=== PATIENT | female | born 1995 | race Caucasian/White ===

== ENCOUNTER 2017-03-22 23:55 | Outpatient (CLI) | payer OTHER ==
[~2017-03-22] VITALS: Ht 149.9 cm; Wt 65.9 kg
[~2017-03-22 23:55] MED LIST: ALBUTEROL; INHALERS
[2017-03-23 00:28] LABS: ADD UMIC NO; UR ASCORBIC ACID NEGATIVE (NEGATIVE); UR BILIRUBIN (Dip) NEGATIVE (NEGATIVE); UR BLOOD (Dip) NEGATIVE (NEGATIVE); UR CLARITY CLEAR (CLEAR); UR COLOR STRAW (YELLOW); UR GLUCOSE (Dip) NEGATIVE (NEGATIVE); UR KETONES (Dip) NEGATIVE (NEGATIVE); UR LEUKOCYTE ESTERASE (Dip) NEGATIVE Leu/ul (NEGATIVE); UR NITRITE (Dip) NEGATIVE (NEGATIVE); UR SPECIFIC GRAVITY (Dip) 1.004 (1.003-1.030); UR TOTAL PROTEIN (Dip) NEGATIVE (NEGATIVE); UR UROBILINOGEN (Dip) NEGATIVE (NEGATIVE)
--- NOTE | 2017-03-23 01:20 | PN ---
Triage Information Date/Time March 23, 2017 Weeks of Gestation 27 weeks : 1 Para: 0 Diabetes: none Hypertention: none Additional information 21 y.o. G1 with an IUP at 27 weeks came in with c/o decreased movement. No bleeding or leaking. PMHxL asthma. Scoliosis.Sciatica. PSHx: tonsillectomy. NKDA. Objective T=98.8. Heart Rate: 130's Contractions: None (rare) Results/Medications Results 24 hrs Laboratory Tests Test 03/23/17 00:05 Urine Color STRAW Urine Clarity CLEAR Urine pH 7.0 Urine Specific [place] 1.004 Urine Ketones NEGATIVE Urine Nitrite NEGATIVE Urine Bilirubin NEGATIVE Urine Urobilinogen NEGATIVE Urine Leukocyte Esterase NEGATIVE Urine Hemoglobin NEGATIVE Urine Glucose NEGATIVE Urine Total Protein NEGATIVE Imaging Results Biophysical profile is pending. Assessment/Plan A: IUP at 27 weeks with c/o decreased movement. P: BPP , u/a WITH PRN CULTURE. BPP is pending. If all good, may go home at any time. MARSHALL TREVINO MD Mar 23, 2017 01:20
--- NOTE | 2017-03-23 02:42 | RADRPT ---
PROCEDURE: US OB biophysical profile. CLINICAL INDICATION: decreased movements TECHNIQUE: Multiple sonographic images of the pelvis were obtained. The images were reviewed on a PACS workstation. COMPARISON: No pertinent prior examinations were submitted for comparison. FINDINGS: There is a single viable intrauterine gestation. Cardiac activity is present with 157 beats per min false pass. There is a breech presentation. The placenta is posterior, grade 1 in appearance. There is an increased amount of amniotic fluid with an HINA = 23.3 cm. Biophysical profile: movement 2/2 tone 2/2. breathing 2/2 HINA 2/2 Total 04/02 IMPRESSION: Normal biophysical profile. Polyhydramnios RPTAT: HIKT . .Trey Matthew MD, MD Date Time Electronically viewed and signed by .Trey Matthew MD, on 03/23/2017 02:41 .T/
[2017-03-23 02:49] VITALS: BP 108/61; RESP 18
[2017-03-23] MEDS ORDERED: PRENAT PO (02:57)
--- NOTE | 2017-03-23 04:26 | TRIAGE ---
OB Triage Datetime Report Generated by CPN: 03/23/2017 04:25 Datetime: 03/23/2017 00:58 Stage of : OB Triage Heart Rate Monitor Mode: External US Datetime: 03/23/2017 00:15 Time of Arrival: 03/22/2017 23:50 EGA: 26.6 Arrived By: Wheelchair Arrived From: Home Chief Complaint: w/ c/o DFM all day Movement: Decreased Contractions: Denies/Absent Rupture of Membranes: Denies Vaginal Bleeding: None Vaginal Discharge: Denies Recent Sexual Intercouse: Denies Abdominal Trauma: Not Applicable Patient Complaints: None Time Provider Notified: 03/23/2017 00:19 Provider Notified: Dr Suarez Initial Plan: EFM, BPP, UA Vaginal Exam Membrane Status: Intact
== END 2017-03-23 03:09 | disposition home or self-care (01) ==
LOC: OBT 23:55 → L-D 23:58 → OBT 03-23 03:09
PROVIDERS: ATTEND Obstetrics & Gynecology
DX: O36.8120 Decreased fetal movements, second trimester, not applicable or unspecified (principal); Z3A.27 27 weeks gestation of pregnancy
CPT/HCPCS: 76818; 81003

== ENCOUNTER 2017-04-05 12:19 | Outpatient (CLI) | payer OTHER ==
[~2017-04-05] VITALS: Ht 149.9 cm; Wt 66.8 kg
[~2017-04-05 12:19] MED LIST changes: -INHALERS; +PRENAT PO
[2017-04-05 13:14] VITALS: Ht 149.9 cm; Wt 66.8 kg
[2017-04-05 13:19] VITALS: BP 120/66; PULSE 91; RESP 20
[2017-04-05 13:38] LABS: BASOPHILS % 0.2 % (0.0-2.0); EOSINOPHILS # 0.1 10^3/ul (0.0-0.5); EOSINOPHILS % 0.6 % (0.0-7.0); HEMATOCRIT 28.8 % (37.0-47.0); MEAN CORPUSCULAR HEMOGLOBIN 29.8 pg (29.0-33.0); MEAN CORPUSCULAR HGB CONC 34.7 g/dl (32.0-37.0); MEAN CORPUSCULAR VOLUME 85.7 fl (82.0-101.0); MEAN PLATELET VOLUME 10.9 fl (7.4-10.4); MONOCYTE # 0.9 10^3/ul (0.3-0.9); NEUTROPHILS % 76.6 % (39.0-77.0); PLATELET COUNT 184 10^3/UL (140-415); RED BLOOD COUNT 3.36 10^6/ul (4.20-5.40); RED CELL DISTRIBUTION WIDTH 13.1 % (11.5-14.5); WHITE BLOOD COUNT 14.4 10^3/ul (4.8-10.8)
[2017-04-05 13:53] LABS: ADD UMIC NO; UR ASCORBIC ACID NEGATIVE (NEGATIVE); UR BACTERIA FEW /HPF (NONE SEEN); UR BILIRUBIN (Dip) NEGATIVE (NEGATIVE); UR BLOOD (Dip) NEGATIVE (NEGATIVE); UR CLARITY SLIGHTLY CLOUDY (CLEAR); UR COLOR YELLOW (YELLOW); UR GLUCOSE (Dip) NEGATIVE (NEGATIVE); UR KETONES (Dip) NEGATIVE (NEGATIVE); UR LEUKOCYTE ESTERASE (Dip) NEGATIVE Leu/ul (NEGATIVE); UR NITRITE (Dip) NEGATIVE (NEGATIVE); UR RBC 0 /HPF (0-5); UR SPECIFIC GRAVITY (Dip) 1.009 (1.003-1.030); UR SQUAMOUS EPITHELIAL CELL FEW /HPF (FEW); UR TOTAL PROTEIN (Dip) NEGATIVE (NEGATIVE); UR UROBILINOGEN (Dip) NEGATIVE (NEGATIVE)
--- NOTE | 2017-04-05 13:54 | RADRPT ---
PROCEDURE: OB ultrasound for biophysical profile CLINICAL INDICATION: Polyhydramnios, follow-up TECHNIQUE: Multiple sonographic images of the pelvis were obtained. Transabdominal views of the g ravid uterus are available for review. The images were reviewed on a PACS workstation. COMPARISON: Biophysical profile dated 03/23/2017 FINDINGS: breathing movement = 2/2 tone = 2/2 motion = 2/2 HINA = 2/2 HINA = 15.7 cm Single live intrauterine with cardiac activity of 147 bpm. position is cephal ic. The placenta is posterior. IMPRESSION: 1. Single live intrauterine gestation. 2. Biophysical profile = /8. 3. HINA = 15.7 cm, compared to 23.3 cm on the prior examination. RPTAT: HH .Melisa Diego MD, Date Time Electronically viewed and signed by .Melisa Diego MD, on 04/05/2017 13:54 .G/
--- NOTE | 2017-04-05 14:02 | RADRPT ---
PROCEDURE: US OB. Ultrasound cervix CLINICAL INDICATION: Size and dates TECHNIQUE: Multiple sonographic images of the pelvis and gravid uterus were obtained. In addition, transvaginal images of the cervix were obtained. The images were reviewed on a PACS workstation. COMPARISON: 03/23/17 FINDINGS: The cervix is closed with a length of 4.2 cm. There is a single viable intrauterine gestation. Cardiac activity is present with 131 beats per min [place]. There is a vertex presentation. The placenta is anterior. There is no evidence for an abruption or placenta previa. There is a normal amount of amniotic fluid with an HINA = 15.7 cm. Measurements were made in order to determine age. The results are as follows: BPD =7.7 cm HC =27.5 cm AC =25.7 cm FL =5.2 cm Estimated gestational age of approximately 29 weeks and 5 days based on ultrasound measurements. Clinical age: 28 weeks and 2 days. The estimated date of delivery is 06/16/2017, based on ultrasound measurements. The EFW = 1369 g, 75.8%, based on LMP age. RPTAT: AA IMPRESSION: Single viable intrauterine gestation of approximately 29 weeks and 5 days based on ultrasound measu rements. .Handy Clifton MD, Date Time Electronically viewed and signed by .Handy Clifton MD, MD on 04/05/2017 14:01 .S/
[2017-04-05 14:27] LABS: ALBUMIN 3.6 g/dl (3.3-4.9); ALBUMIN/GLOBULIN RATIO 1.28; BILIRUBIN,INDIRECT 0.3 mg/dl (0-1.1); BILIRUBIN,TOTAL 0.3 mg/dl (0.2-1.3); CALCIUM 9.4 mg/dl (8.4-10.2); CREATININE 0.48 mg/dl (0.44-1.00); POTASSIUM 3.6 mmol/L (3.5-5.1); TOTAL PROTEIN 6.4 g/dl (6.1-8.1)
--- NOTE | 2017-04-05 15:08 | PN ---
Triage Information Date/Time 04/05/17 1500 Reason for visit: pelvic cramping pain Weeks of Gestation 28w6d /Para G!P! Diabetes: none Hypertention: none Additional information ashfl Objective Vital Signs Date Time Temp Pulse Resp B/P Pulse Ox O2 Delivery O2 Flow Rate FiO2 04/05/17 13:19 98.4 91 20 120/66 97 Room Air Heart Rate: 140's Contractions: >10 Minutes Apart Results/Medications Result Diagram: 04/05/17 1320 04/05/17 1320 Results 24 hrs Laboratory Tests Test 04/05/17 12:35 04/05/17 13:20 Urine Color YELLOW Urine Clarity SLIGHTLY CLOUDY A Urine pH 7.0 Urine Specific [place] 1.009 Urine Ketones NEGATIVE Urine Nitrite NEGATIVE Urine Bilirubin NEGATIVE Urine Urobilinogen NEGATIVE Urine Leukocyte Esterase NEGATIVE Urine Microscopic RBC 0 Urine Microscopic WBC 2 Urine Squamous Epithelial Cells FEW Urine Bacteria FEW A Urine Hemoglobin NEGATIVE Urine Glucose NEGATIVE Urine Total Protein NEGATIVE White Blood Count 14.4 H Red Blood Count 3.36 L Hemoglobin 10.0 L Hematocrit 28.8 L Mean Corpuscular Volume 85.7 Mean Corpuscular Hemoglobin 29.8 Mean Corpuscular Hemoglobin Concent 34.7 Red Cell Distribution Width 13.1 Platelet Count 184 Mean Platelet Volume 10.9 H Neutrophils % 76.6 Lymphocytes % 14.0 L Monocytes % 6.0 Eosinophils % 0.6 Basophils % 0.2 Nucleated Red Blood Cells % 0.0 Neutrophils # 11.0 H Lymphocytes # 2.0 Monocytes # 0.9 Eosinophils # 0.1 Basophils # 0.0 Nucleated Red Blood Cells # 0.0 Sodium Level 138 Potassium Level 3.6 Chloride Level 102 Carbon Dioxide Level 24 Anion Gap 16 Blood Urea Nitrogen 5 L Creatinine 0.48 Glucose Level 100 Calcium Level 9.4 Total Bilirubin 0.3 Direct Bilirubin 0.00 Indirect Bilirubin 0.3 Aspartate Amino Transf (AST/SGOT) 17 Alanine Aminotransferase (ALT/SGPT) 21 Alkaline Phosphatase 90 Total Protein 6.4 Albumin 3.6 Globulin 2.80 Albumin/Globulin Ratio 1.28 Imaging Results CVL >4 HINA 15 EFW 3lb HINA 15 Disposition: Discharge Assessment/Plan discharge home andd routine labori instructions RTH prJEAN Zavala MD Apr 05, 2017 15:08
--- NOTE | 2017-04-05 15:23 | TRIAGE ---
OB Triage Datetime Report Generated by CPN: 04/05/2017 15:22 Datetime: 04/05/2017 14:44 Labor Evaluation Frequency: 0 Monitor Mode: External Duration (sec)2399: 0 Resting Tone [place]: Relaxed Contraction Comments: PT DENIES UC'S Heart Rate FHR Baseline Rate: 135 Variability: Moderate 6-25 bpm Accelerations: 15X15 Decelerations: None Category: Category I Comments: NST REACTIVE FOR GESTATION Pain Assessment Pain Scale: 2 Pain Presence: Intermittent Pain Type: Cramping Pain Location: Abdomen; Back Pain Goal: 2 Pain Relief Measures: Comfort Measures Pain Assessment Comments: PT REPORTS DTOLERABLE PAIN AND FEELING BETTER AT THIS TIME Datetime: 04/05/2017 14:11 Labor Evaluation Frequency: 0 Monitor Mode: External Duration (sec)2399: 0 Quality: Mild Resting Tone [place]: Relaxed Heart Rate FHR Baseline Rate: 145 Monitor Mode: External US Variability: Moderate 6-25 bpm Accelerations: 15X15 Decelerations: None Category: Category I Datetime: 04/05/2017 14:00 Stage of : OB Triage Assessment Type: Triage Maternal Assessment Level of Consciousness: Fully Conscious DTR's/Clonus: DTRs 2+; No Clonus Headache: Denies Blurred Vision: No Respiratory Effort: Unlabored; Regular Rhythm; Equal Expansion Breath Sounds, Left: Clear and Equal Breath Sounds, Right: Clear and Equal Nausea/Vomiting: Denies RUQ Epigastric Pain: Denies Lower Extremities Edema: None Degree: None Upper Extremities Edema: None Degree: None Facial Edema: None Temperature Route: Axillary Fall Risk Assessment History of Falling: (0) No Secondary Diagnosis: (0) No Ambulatory Aid: (0) Bedrest/Nurse Assist IV Therapy: (0) No Gait: (0) Normal/Bedrest/Immobile Mental Status: (0) Oriented to Own Ability Fall Score: 0 Fall Risk Score Definition: No Risk: No action required Datetime: 04/05/2017 12:48 Labor Evaluation Frequency: 0 Monitor Mode: External Duration (sec)2399: 0 Resting Tone [place]: Relaxed Contraction Comments: PT DENIES UC'S Heart Rate FHR Baseline Rate: 145 Monitor Mode: External US Variability: Moderate 6-25 bpm Accelerations: 15X15 Decelerations: None Category: Category I Datetime: 04/05/2017 12:00 Time of Arrival: 04/05/2017 12:16 EGA: 28.6 Arrived By: Ambulatory Arrived From: Home Chief Complaint: LOWER ABD PAIN 02/02, SHORTNESS OF BREATH UPON EXERTION , PT HAD AN APPOINTMENT IN DR. ONEAL OFFICE YESTERDAY 04/04 CAME IN ORDERS FOR BPP, EFW, CL, CMP, CBC, UA Movement: Present Contractions: Denies/Absent Rupture of Membranes: Denies Vaginal Bleeding: None Vaginal Discharge: Denies Recent Sexual Intercouse: Denies Abdominal Trauma: Not Applicable Patient Complaints: Cramping; Back Pain Additional Patient Complaints: SCOLIOSIS PAIN Time Provider Notified: 04/05/2017 13:00 Provider Notified: DR. GOSS Initial Plan: BPP, HINA, EFW, CL Datetime: 03/23/2017 03:00 Stage of : OB Triage Monitor Mode: External Pattern: Normal: <= 5 Contractions in 10 Minutes Resting Tone [place]: Relaxed Heart Rate FHR Baseline Rate: 140 Monitor Mode: External US FHR Baseline Changes: No Baseline Change Variability: Moderate 6-25 bpm Accelerations: 15X15 Category: Category I Datetime: 03/23/2017 01:42 Stage of : OB Triage Heart Rate FHR Baseline Rate: 135 Monitor Mode: External US Datetime: 03/23/2017 01:21 Monitor Mode: External Quality: Mild Pattern: Normal: <= 5 Contractions in 10 Minutes Resting Tone [place]: Relaxed Contraction Comments: pt denies discomfort Heart Rate FHR Baseline Rate: 140 Monitor Mode: External US Datetime: 03/23/2017 00:19 Stage of : OB Triage Monitor Mode: External Duration (sec)2399: 20-40sec Quality: Mild Pattern: Normal: <= 5 Contractions in 10 Minutes Resting Tone [place]: Relaxed Heart Rate FHR Baseline Rate: 130 Monitor Mode: External US FHR Baseline Changes: No Baseline Change Variability: Moderate 6-25 bpm Accelerations: 15X15 Decelerations: None Category: Category I Datetime: 03/23/2017 00:15 EGA: 26.6 Datetime: 03/23/2017 00:08 Stage of : OB Triage Maternal Assessment Level of Consciousness: Fully Conscious Headache: Generalized Blurred Vision: No Respiratory Effort: Unlabored Nausea/Vomiting: Denies RUQ Epigastric Pain: Denies Facial Edema: None Labor Evaluation Frequency: placed Monitor Mode: External Resting Tone [place]: Relaxed Monitor Mode: External US Comments: FHT 150 Pain Assessment Pain Scale: 0 Pain Presence: None/Denies Pain Type: N/A
== END 2017-04-05 15:15 | disposition home or self-care (01) ==
LOC: OBT 12:19 → L-D 12:25 → OBT 15:15
PROVIDERS: ATTEND Obstetrics & Gynecology
DX: O62.9 Abnormality of forces of labor, unspecified (principal); Z3A.28 28 weeks gestation of pregnancy
CPT/HCPCS: 76815; 76817; 76818; 80053; 81001; 85025; Z7500; 81003; G0463

== ENCOUNTER 2017-05-09 12:58 | Outpatient (CLI) | payer OTHER ==
[~2017-05-09] VITALS: Ht 149.9 cm; Wt 68.6 kg
[2017-05-09 13:08] VITALS: BP 104/59; PULSE 85; RESP 20
[2017-05-09 13:09] VITALS: Ht 149.9 cm; Wt 68.6 kg
[2017-05-09 13:52] LABS: ADD UMIC NO; UR ASCORBIC ACID NEGATIVE (NEGATIVE); UR BILIRUBIN (Dip) NEGATIVE (NEGATIVE); UR BLOOD (Dip) NEGATIVE (NEGATIVE); UR CLARITY CLEAR (CLEAR); UR COLOR STRAW (YELLOW); UR GLUCOSE (Dip) NEGATIVE (NEGATIVE); UR KETONES (Dip) NEGATIVE (NEGATIVE); UR LEUKOCYTE ESTERASE (Dip) NEGATIVE Leu/ul (NEGATIVE); UR NITRITE (Dip) NEGATIVE (NEGATIVE); UR SPECIFIC GRAVITY (Dip) 1.003 (1.003-1.030); UR TOTAL PROTEIN (Dip) NEGATIVE (NEGATIVE); UR UROBILINOGEN (Dip) NEGATIVE (NEGATIVE)
[2017-05-09] MEDS: LACTATED RINGER'S 1,000 ML IV SCH ×3 (14:32→18:33)
--- NOTE | 2017-05-09 15:07 | RADRPT ---
PROCEDURE: US OB biophysical profile. CLINICAL INDICATION: evaluation, labor TECHNIQUE: Multiple sonographic images of the pelvis were obtained. The images were reviewed on a PACS workstation. COMPARISON: No prior studies are available for comparison. FINDINGS: The cervix is closed and measures 4.7 cm in length. There is a single viable intrauterine gestation. Cardiac activity is present with 122 beats per min [place]. There is a vertex presentation. The placenta is posterior and fundal in location. There is no evidence of placental abruption. There is a normal amount of amniotic fluid with an HINA = 20.2 cm. Biophysical profile: movement 2/2 tone 2/2. breathing 2/2 HINA 2/2 Total 04/02 RPTAT: AA . IMPRESSION: Normal biophysical profile. The cervix is closed and measures 4.7 cm in length. Physician Guy Date Time Electronically viewed and signed by Physician Guy on 05/09/2017 15:07 /
[2017-05-09] MEDS ORDERED: TERBUTALINE 1 ML ONE (15:28)
[2017-05-09] MEDS: TERBUTALINE 1 MG/ML INJ SC PRN ×2 (15:32→17:15)
[2017-05-09 20:20] LABS: BASOPHIL # 0.1 10^3/ul (0.0-0.1); BASOPHILS % 0.4 % (0.0-2.0); EOSINOPHILS # 0.1 10^3/ul (0.0-0.5); EOSINOPHILS % 0.7 % (0.0-7.0); HEMATOCRIT 33.8 % (37.0-47.0); HEMOGLOBIN 11.1 g/dl (12.0-16.0); LYMPHOCYTES # 2.2 10^3/ul (0.8-2.9); LYMPHOCYTES % 16.9 % (15.0-51.0); MEAN CORPUSCULAR HEMOGLOBIN 28.7 pg (29.0-33.0); MEAN CORPUSCULAR HGB CONC 32.8 g/dl (32.0-37.0); MEAN CORPUSCULAR VOLUME 87.3 fl (82.0-101.0); MEAN PLATELET VOLUME 12.1 fl (7.4-10.4); MONOCYTE # 0.9 10^3/ul (0.3-0.9); MONOCYTES % 6.4 % (0.0-11.0); NEUTROPHIL # 9.7 10^3/ul (1.6-7.5); NEUTROPHILS % 73.3 % (39.0-77.0); PLATELET COUNT 204 10^3/UL (140-415); RED BLOOD COUNT 3.87 10^6/ul (4.20-5.40); RED CELL DISTRIBUTION WIDTH 14.1 % (11.5-14.5); WHITE BLOOD COUNT 13.2 10^3/ul (4.8-10.8)
[2017-05-09 20:52] LABS: ALBUMIN 3.6 g/dl (3.3-4.9); ALBUMIN/GLOBULIN RATIO 1.2; BILIRUBIN,INDIRECT 0.4 mg/dl (0-1.1); BILIRUBIN,TOTAL 0.4 mg/dl (0.2-1.3); CALCIUM 9.7 mg/dl (8.4-10.2); CREATININE 0.45 mg/dl (0.44-1.00); POTASSIUM 3.7 mmol/L (3.5-5.1); TOTAL PROTEIN 6.6 g/dl (6.1-8.1)
[2017-05-09] MEDS ORDERED: CEFTRIAXONE 1 GM/50 ML (PMX) 50 ML IVPB ONE (21:00)
[2017-05-09] MEDS ORDERED: SOD CHLORIDE 0.9% 1,000 ML IV SCH (21:00)
--- NOTE | 2017-05-10 00:16 | PN ---
Triage Information Date/Time 05/10/17 Reason for visit: Uterine contractions Weeks of Gestation iup 33w1d /Para primigravida Hypertention: none Objective Vital Signs Date Time Temp Pulse Resp B/P Pulse Ox O2 Delivery O2 Flow Rate FiO2 05/09/17 13:08 98.5 85 20 104/59 Room Air Intake and Output 05/09/17 05/09/17 05/10/17 15:00 23:00 07:00 Intake Total 1000 ml 1000 ml Balance 1000 ml 1000 ml Heart Rate: 120's Contractions: < 5 Minutes Apart Exam CVA + tenderness Results/Medications Result Diagram: 05/09/17 1800 05/09/17 1800 Results 24 hrs Laboratory Tests Test 05/09/17 13:40 05/09/17 18:00 Urine Color STRAW Urine Clarity CLEAR Urine pH 8.0 Urine Specific [place] 1.003 Urine Ketones NEGATIVE Urine Nitrite NEGATIVE Urine Bilirubin NEGATIVE Urine Urobilinogen NEGATIVE Urine Leukocyte Esterase NEGATIVE Urine Hemoglobin NEGATIVE Urine Glucose NEGATIVE Urine Total Protein NEGATIVE White Blood Count 13.2 H Red Blood Count 3.87 L Hemoglobin 11.1 L Hematocrit 33.8 L Mean Corpuscular Volume 87.3 Mean Corpuscular Hemoglobin 28.7 L Mean Corpuscular Hemoglobin Concent 32.8 Red Cell Distribution Width 14.1 Platelet Count 204 Mean Platelet Volume 12.1 H Neutrophils % 73.3 Lymphocytes % 16.9 Monocytes % 6.4 Eosinophils % 0.7 Basophils % 0.4 Nucleated Red Blood Cells % 0.0 Neutrophils # 9.7 H Lymphocytes # 2.2 Monocytes # 0.9 Eosinophils # 0.1 Basophils # 0.1 Nucleated Red Blood Cells # 0.0 Sodium Level 135 Potassium Level 3.7 Chloride Level 103 Carbon Dioxide Level 25 Anion Gap 11 Blood Urea Nitrogen 4 L Creatinine 0.45 Glucose Level 53 L Calcium Level 9.7 Total Bilirubin 0.4 Direct Bilirubin 0.00 Indirect Bilirubin 0.4 Aspartate Amino Transf (AST/SGOT) 22 Alanine Aminotransferase (ALT/SGPT) 24 Alkaline Phosphatase 159 H Total Protein 6.6 Albumin 3.6 Globulin 3.00 Albumin/Globulin Ratio 1.20 Medications IV hydration with rocephine Imaging Results BPP 8/8 HINA 20 CVL 4.7 Disposition: Discharge Assessment/Plan IUP 33w1d resolved 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
--- NOTE | 2017-05-10 04:03 | TRIAGE ---
OB Triage Datetime Report Generated by CPN: 05/10/2017 04:03 Datetime: 05/09/2017 22:25 Stage of : OB Triage Labor Evaluation Frequency: NONE Monitor Mode: External Resting Tone [place]: Relaxed Heart Rate FHR Baseline Rate: 130 Monitor Mode: External US FHR Baseline Changes: No Baseline Change Variability: Moderate 6-25 bpm Accelerations: 15X15 Decelerations: None Category: Category I Datetime: 05/09/2017 21:30 Stage of : OB Triage Maternal Assessment Level of Consciousness: Fully Conscious DTR's/Clonus: DTRs 2+; No Clonus Headache: Denies Breath Sounds, Left: Clear and Equal Breath Sounds, Right: Clear and Equal Nausea/Vomiting: Denies Labor Evaluation Frequency: OCCASIONAL Monitor Mode: External Duration (sec)2399: 40-50 Quality: Mild Pattern: Normal: <= 5 Contractions in 10 Minutes Resting Tone [place]: Relaxed Heart Rate FHR Baseline Rate: 130 Monitor Mode: External US FHR Baseline Changes: No Baseline Change Variability: Moderate 6-25 bpm Accelerations: 15X15 Decelerations: None Category: Category I Datetime: 05/09/2017 20:30 Stage of : OB Triage Maternal Assessment Level of Consciousness: Fully Conscious DTR's/Clonus: DTRs 2+; No Clonus Headache: Denies Breath Sounds, Left: Clear and Equal Breath Sounds, Right: Clear and Equal Nausea/Vomiting: Denies RUQ Epigastric Pain: Denies Labor Evaluation Frequency: OCCASIONAL Monitor Mode: External Duration (sec)2399: 50 Quality: Mild Pattern: Normal: <= 5 Contractions in 10 Minutes Heart Rate FHR Baseline Rate: 130 Monitor Mode: External US FHR Baseline Changes: No Baseline Change Variability: Moderate 6-25 bpm Accelerations: 15X15 Decelerations: None Category: Category I Datetime: 05/09/2017 19:30 Assessment Type: Ongoing Assessment Maternal Assessment Level of Consciousness: Fully Conscious DTR's/Clonus: DTRs 2+; No Clonus Headache: Denies Blurred Vision: No Respiratory Effort: Unlabored; Regular Rhythm; Equal Expansion Breath Sounds, Left: Clear and Equal Breath Sounds, Right: Clear and Equal Nausea/Vomiting: Denies RUQ Epigastric Pain: Denies Facial Edema: None Fall Risk Assessment History of Falling: (0) No Secondary Diagnosis: (0) No Ambulatory Aid: (0) Bedrest/Nurse Assist IV Therapy: (0) No Gait: (0) Normal/Bedrest/Immobile Mental Status: (0) Oriented to Own Ability Fall Score: 0 Fall Risk Score Definition: No Risk: No action required Datetime: 05/09/2017 19:29 Comments: DR WOLFGANG AT BEDSIDE Datetime: 05/09/2017 18:19 Labor Evaluation Frequency: 0 Monitor Mode: External Quality: Mild Pattern: Normal: <= 5 Contractions in 10 Minutes Resting Tone [place]: Relaxed Heart Rate FHR Baseline Rate: 135 Monitor Mode: External US Variability: Moderate 6-25 bpm Accelerations: 10X10 Decelerations: None Category: Category I Pain Assessment Pain Scale: 0 Pain Presence: None/Denies Pain Type: N/A Pain Goal: 3 Pain Relief Measures: Comfort Measures Datetime: 05/09/2017 17:08 Labor Evaluation Frequency: 0 Monitor Mode: External Pattern: Normal: <= 5 Contractions in 10 Minutes Resting Tone [place]: Relaxed Heart Rate FHR Baseline Rate: 140 Monitor Mode: External US Variability: Moderate 6-25 bpm Accelerations: 10X10 Decelerations: None Category: Category I Pain Assessment Pain Scale: 2 Pain Presence: Intermittent Pain Type: Cramping Pain Location: Abdomen Pain Relief Measures: Comfort Measures Datetime: 05/09/2017 16:03 Labor Evaluation Frequency: 0 Monitor Mode: External Pattern: Normal: <= 5 Contractions in 10 Minutes Resting Tone [place]: Relaxed Heart Rate FHR Baseline Rate: 135 Monitor Mode: External US Variability: Moderate 6-25 bpm Accelerations: 10X10 Decelerations: None Category: Category I Datetime: 05/09/2017 15:00 Labor Evaluation Frequency: 1-6 Monitor Mode: External Duration (sec)2399: 60-90 Quality: Strong Pattern: Normal: <= 5 Contractions in 10 Minutes Resting Tone [place]: Relaxed Heart Rate FHR Baseline Rate: 130 Monitor Mode: External US FHR Baseline Changes: No Baseline Change Variability: Moderate 6-25 bpm Accelerations: 15X15 Decelerations: None Category: Category I Pain Assessment Pain Scale: 5 Pain Presence: Intermittent Pain Type: Contraction Pain Location: Abdomen; Back Pain Goal: 0 Pain Relief Measures: Comfort Measures Datetime: 05/09/2017 14:12 Stage of : OB Triage Datetime: 05/09/2017 14:00 Labor Evaluation Frequency: 1-10 Monitor Mode: External Duration (sec)2399: 40-60 Quality: Strong Pattern: Normal: <= 5 Contractions in 10 Minutes Resting Tone [place]: Relaxed Heart Rate FHR Baseline Rate: 130 Monitor Mode: External US FHR Baseline Changes: No Baseline Change Variability: Moderate 6-25 bpm Accelerations: 15X15 Decelerations: None Category: Category I Pain Assessment Pain Scale: 5 Pain Presence: Intermittent Pain Type: Contraction Pain Location: Abdomen Pain Goal: 2 Datetime: 05/09/2017 13:04 Time of Arrival: 05/09/2017 12:51 EGA: 33.1 Arrived By: Ambulatory Arrived From: Home Chief Complaint: C/O ABDOMINAL PAIN INTERMITTENT THAT STARTED AT APPROX 11, DENIES BLEEDING OR ANAHI ARNOLD OF FLUID Movement: Present Contractions: Irregular Rupture of Membranes: Denies Vaginal Bleeding: None Vaginal Discharge: Present Recent Sexual Intercouse: Denies Abdominal Trauma: Not Applicable Patient Complaints: Cramping Time Provider Notified: 05/09/2017 14:12 Provider Notified: WOLFGANG Initial Plan: MONITOR, U/A, IV HYDRATION, CL, BPP/HINA, TERB X2 Datetime: 05/09/2017 13:00 Assessment Type: Triage Maternal Assessment Level of Consciousness: Fully Conscious DTR's/Clonus: DTRs 2+; No Clonus Headache: Denies Blurred Vision: No Respiratory Effort: Unlabored; Regular Rhythm; Equal Expansion Nausea/Vomiting: Denies RUQ Epigastric Pain: Denies Lower Extremities Edema: Bilateral Lower Extremities Degree: Pitting Upper Extremities Edema: None Degree: None Facial Edema: None Fall Risk Assessment History of Falling: (0) No Secondary Diagnosis: (0) No Ambulatory Aid: (0) Bedrest/Nurse Assist IV Therapy: (0) No Gait: (0) Normal/Bedrest/Immobile Mental Status: (0) Oriented to Own Ability Fall Score: 0 Fall Risk Score Definition: No Risk: No action required Datetime: 04/05/2017 14:00 Fall Score: 0 Fall Risk Score Definition: No Risk: No action required Datetime: 04/05/2017 12:00 EGA: 28.2 Additional Patient Complaints: SCOLIOSIS PAIN, PAINFUL HANDS AND FEET Datetime: 03/23/2017 00:15 EGA: 26.2
== END 2017-05-09 22:40 | disposition home or self-care (01) ==
LOC: OBT 12:58 → L-D 12:58 → OBT 22:40
PROVIDERS: ATTEND Obstetrics & Gynecology
DX: O62.9 Abnormality of forces of labor, unspecified (principal); Z3A.33 33 weeks gestation of pregnancy
CPT/HCPCS: 76817; 76818; 80053; 81003; 85025; 87086; 96360; 96361; 96372; J0696; J3105; J7030; J7120; Z7500; G0463

== ENCOUNTER 2017-05-23 18:03 | Inpatient (IN) | payer OTHER ==
[~2017-05-23] VITALS: Ht 149.9 cm; Wt 68.2 kg
[2017-05-23] MEDS ORDERED: AZITHROMYCIN 500MG/NS (PMX) 250 ML IVPB ONE (19:00)
[2017-05-23] MEDS: LACTATED RINGER'S 1,000 ML IV SCH ×2 (19:00→22:46)
[2017-05-23] MEDS ORDERED: LACTATED RINGER'S 500 ML IV ONE (19:00)
[2017-05-23 20:00] VITALS: Ht 149.9 cm; Wt 68.2 kg
[2017-05-23 20:01] VITALS: BP 102/56; RESP 18
[2017-05-23 20:03] VITALS: PULSE 108
[2017-05-23 20:15] LABS: BASOPHIL # 0.1 10^3/ul (0.0-0.1); BASOPHILS % 0.5 % (0.0-2.0); EOSINOPHILS # 0.2 10^3/ul (0.0-0.5); EOSINOPHILS % 1.1 % (0.0-7.0); LYMPHOCYTES # 1.7 10^3/ul (0.8-2.9); LYMPHOCYTES % 12.1 % (15.0-51.0); MEAN CORPUSCULAR HEMOGLOBIN 28.6 pg (29.0-33.0); MEAN CORPUSCULAR HGB CONC 34.4 g/dl (32.0-37.0); MEAN CORPUSCULAR VOLUME 83.3 fl (82.0-101.0); MEAN PLATELET VOLUME 11.7 fl (7.4-10.4); MONOCYTE # 1.2 10^3/ul (0.3-0.9); MONOCYTES % 8.7 % (0.0-11.0); NEUTROPHIL # 10.3 10^3/ul (1.6-7.5); NEUTROPHILS % 74.6 % (39.0-77.0); PLATELET COUNT 183 10^3/UL (140-415); RED BLOOD COUNT 3.84 10^6/ul (4.20-5.40); WHITE BLOOD COUNT 13.8 10^3/ul (4.8-10.8)
--- NOTE | 2017-05-23 20:20 | RADRPT ---
PROCEDURE: US OB biophysical profile. Ultrasound cervix CLINICAL INDICATION: decreased movements, labor TECHNIQUE: Multiple sonographic images of the pelvis were obtained. In addition, transvaginal stephie ges of the cervix were obtained. The images were reviewed on a PACS workstation. COMPARISON: 05/09/2017 FINDINGS: There is a single viable intrauterine gestation. Cardiac activity is present with 152 beats per min [place]. There is a vertex presentation. The placenta is fundal. There is no evidence of placental abruption. There is a normal amount of amniotic fluid with an HINA = 17.7 cm. The cervix measures 4 cm in length and is closed. Biophysical profile: movement 2/2 tone 2/2. breathing 2/2 HINA 2/2 Total 04/02 RPTAT: AA . IMPRESSION: Normal biophysical profile. Cervix measures 4 cm in length. . .Handy Clifton MD, Date Time Electronically viewed and signed by .Handy Clifton MD, on 05/23/2017 20:20 .S/
[2017-05-23 20:26] LABS: ADD UMIC NO; UR ASCORBIC ACID NEGATIVE (NEGATIVE); UR BILIRUBIN (Dip) NEGATIVE (NEGATIVE); UR BLOOD (Dip) NEGATIVE (NEGATIVE); UR CLARITY CLEAR (CLEAR); UR COLOR YELLOW (YELLOW); UR GLUCOSE (Dip) NEGATIVE (NEGATIVE); UR KETONES (Dip) TRACE mg/dL (NEGATIVE); UR LEUKOCYTE ESTERASE (Dip) NEGATIVE Leu/ul (NEGATIVE); UR NITRITE (Dip) NEGATIVE (NEGATIVE); UR SPECIFIC GRAVITY (Dip) 1.008 (1.003-1.030); UR TOTAL PROTEIN (Dip) NEGATIVE (NEGATIVE); UR UROBILINOGEN (Dip) NEGATIVE (NEGATIVE)
[2017-05-23] MEDS ORDERED: MAGNESIUM SULFATE 4 GM/100 ML 100 ML IV ONE (20:30)
[2017-05-23] MEDS ORDERED: GUAIFENESIN 20 MG/ML 5ML CUP PO ONE (20:30)
[2017-05-23] MEDS ORDERED: ACETAMINOPHEN 325 MG TAB PO PRN (20:30)
[2017-05-23] MEDS ORDERED: SALINE 0.65% 45 ML NAS SPRAY NASAL PRN (20:30)
[2017-05-23] MEDS: BETAMET NA PHOS/AC(6 MG/ML) 5ML INJ IM SCH (23:10)
[2017-05-23] MEDS: MAGNESIUM SULFATE 20 GM/500 ML 500 ML IV SCH (23:53)
[2017-05-24] MEDS: ONDANSETRON 4 MG INJ IV PRN ×3 (00:34→21:47)
[2017-05-24] MEDS: GUAIFENESIN 20 MG/ML 5ML CUP PO PRN ×5 (03:44→21:58)
[2017-05-24] MEDS: MAGNESIUM SULFATE 20 GM/500 ML 500 ML IV SCH ×3 (06:27→19:51)
--- NOTE | 2017-05-24 06:40 | TRIAGE ---
OB Triage Datetime Report Generated by CPN: 05/24/2017 06:40 Datetime: 05/24/2017 06:35 Stage of : Antepartum Headache: Denies Blurred Vision: No Nausea/Vomiting: Denies RUQ Epigastric Pain: Denies Facial Edema: None Labor Evaluation Frequency: Irregular Monitor Mode: External Duration (sec)2399: 40-60 Quality: Mild Pattern: Normal: <= 5 Contractions in 10 Minutes Resting Tone [place]: Relaxed Heart Rate FHR Baseline Rate: 120 Monitor Mode: External US Variability: Moderate 6-25 bpm Accelerations: 15X15 Decelerations: None Category: Category I Datetime: 05/24/2017 06:00 Stage of : Antepartum Maternal Assessment Level of Consciousness: Fully Conscious Headache: Denies Blurred Vision: No Nausea/Vomiting: Denies RUQ Epigastric Pain: Denies Facial Edema: None Labor Evaluation Frequency: Irregular Monitor Mode: External Duration (sec)2399: 40-60 Quality: Mild Pattern: Normal: <= 5 Contractions in 10 Minutes Resting [place]one [place]: Relaxed Heart Rate FHR Baseline Rate: 120 Monitor Mode: External US Variability: Moderate 6-25 bpm Accelerations: 15X15 Decelerations: None Category: Category I Pain Assessment Pain Scale: 6 Pain Presence: Intermittent Pain Type: Cramping; Contraction Pain Location: Abdomen Pain Goal: 2 Pain Relief Measures: Comfort Measures Pain Assessment Comments: patient states the pain is still tolerable Datetime: 05/24/2017 05:00 Stage of : Antepartum Labor Evaluation Frequency: Irregular Monitor Mode: External Duration (sec)2399: 30-50 Pattern: Normal: <= 5 Contractions in 10 Minutes Resting Tone [place]: Relaxed Heart Rate FHR Baseline Rate: 120 Monitor Mode: External US Variability: Moderate 6-25 bpm Accelerations: 15X15 Decelerations: None Category: Category I Datetime: 05/24/2017 04:55 Pain Assessment Pain Scale: 5 Pain Presence: Intermittent Pain Type: Cramping; Contraction Pain Location: Abdomen Pain Goal: 0 Pain Relief Measures: Comfort Measures Pain Assessment Comments: patient states the pain is still tolerable Datetime: 05/24/2017 04:00 Stage of : Antepartum Maternal Assessment Level of Consciousness: Fully Conscious Labor Evaluation Frequency: Irregular Monitor Mode: External Duration (sec)2399: 40-70 Quality: Mild Pattern: Normal: <= 5 Contractions in 10 Minutes Resting Tone [place]: Relaxed Heart Rate FHR Baseline Rate: 125 Monitor Mode: External US Variability: Moderate 6-25 bpm Accelerations: 15X15 Decelerations: None Category: Category I Datetime: 05/24/2017 03:48 Stage of : Antepartum Maternal Assessment Level of Consciousness: Fully Conscious Pain Assessment Pain Scale: 0 Pain Presence: None/Denies Pain Type: N/A Pain Goal: 0 Pain Relief Measures: Comfort Measures Pain Assessment Comments: patient denies pain Datetime: 05/24/2017 03:00 Stage of : Antepartum Labor Evaluation Frequency: Irregular Monitor Mode: Internal Duration (sec)2399: 50-70 Pattern: Normal: <= 5 Contractions in 10 Minutes Resting Tone [place]: Relaxed Heart Rate FHR Baseline Rate: 120 Monitor Mode: External US Variability: Moderate 6-25 bpm Accelerations: 15X15 Decelerations: None Category: Category I Pain Type: N/A Pain Assessment Comments: unable to assess as the patient is sleeping Datetime: 05/24/2017 02:30 Maternal Assessment Level of Consciousness: Fully Conscious Headache: Denies Respiratory Effort: Unlabored Breath Sounds, Left: Clear and Equal Breath Sounds, Right: Diminished Nausea/Vomiting: Denies Datetime: 05/24/2017 02:08 Stage of : Antepartum Maternal Assessment Level of Consciousness: Fully Conscious Pain Assessment Pain Scale: 4 Pain Presence: Intermittent Pain Type: Cramping Pain Location: Abdomen Pain Goal: 2 Pain Relief Measures: Comfort Measures Pain Assessment Comments: patient states the pain is still tolerable Datetime: 05/24/2017 02:00 Stage of : Antepartum Maternal Assessment Level of Consciousness: Fully Conscious Labor Evaluation Frequency: Irregular Monitor Mode: External Duration (sec)2399: 50-70 Quality: Mild Pattern: Normal: <= 5 Contractions in 10 Minutes Resting Tone [place]: Relaxed Heart Rate FHR Baseline Rate: 125 Monitor Mode: External US FHR Baseline Changes: No Baseline Change Variability: Moderate 6-25 bpm Accelerations: 15X15 Decelerations: None Category: Category I Datetime: 05/24/2017 01:28 Pain Assessment Pain Scale: 5 Pain Presence: Intermittent Pain Type: Cramping; Contraction Pain Location: Abdomen Pain Goal: 2 Pain Relief Measures: Comfort Measures Pain Assessment Comments: patient states the pain is still tolerable Datetime: 05/24/2017 01:23 Maternal Assessment Level of Consciousness: Fully Conscious Headache: Denies Blurred Vision: No Nausea/Vomiting: Hx of Nausea/Vomiting Datetime: 05/24/2017 01:19 Stage of : Antepartum Datetime: 05/24/2017 01:00 Stage of : Antepartum Maternal Assessment Level of Consciousness: Fully Conscious Labor Evaluation Frequency: Irregular Monitor Mode: External Duration (sec)2399: 50-80 Quality: Mild Pattern: Normal: <= 5 Contractions in 10 Minutes Resting Tone [place]: Relaxed Heart Rate FHR Baseline Rate: 125 Monitor Mode: External US FHR Baseline Changes: No Baseline Change Variability: Moderate 6-25 bpm Accelerations: 15X15 Decelerations: None Category: Category I Datetime: 05/24/2017 00:06 Maternal Assessment Level of Consciousness: Fully Conscious Datetime: 05/24/2017 00:00 Stage of : Antepartum Maternal Assessment Level of Consciousness: Fully Conscious Labor Evaluation Frequency: Irregular Monitor Mode: External Duration (sec)2399: 50-80 Quality: Mild Pattern: Normal: <= 5 Contractions in 10 Minutes Resting [place]one [place]: Relaxed Heart Rate FHR Baseline Rate: 130 Monitor Mode: External US FHR Baseline Changes: No Baseline Change Variability: Moderate 6-25 bpm Accelerations: 15X15 Decelerations: None Category: Category I Datetime: 05/23/2017 23:46 Stage of : Antepartum Datetime: 05/23/2017 23:28 Nausea/Vomiting: Present Datetime: 05/23/2017 23:09 Maternal Assessment Level of Consciousness: Fully Conscious DTR's/Clonus: DTRs 2+; No Clonus Headache: Denies Blurred Vision: No Respiratory Effort: Unlabored; Regular Rhythm; Equal Expansion Breath Sounds, Left: Clear and Equal Breath Sounds, Right: Clear and Equal Nausea/Vomiting: Denies RUQ Epigastric Pain: Denies Facial Edema: None Pain Assessment Pain Scale: 0 Pain Presence: None/Denies Pain Type: N/A Pain Location: Back Pain Goal: 0 Pain Relief Measures: Comfort Measures Pain Assessment Comments: patient denies pain at this time Datetime: 05/23/2017 23:00 Stage of : Antepartum Maternal Assessment Level of Consciousness: Fully Conscious Labor Evaluation Frequency: 1.5-5 Monitor Mode: External Duration (sec)2399: 50-90 Quality: Mild Pattern: Normal: <= 5 Contractions in 10 Minutes Resting Tone [place]: Relaxed Heart Rate FHR Baseline Rate: 130 Monitor Mode: External US FHR Baseline Changes: No Baseline Change Variability: Moderate 6-25 bpm Accelerations: 15X15 Decelerations: None Category: Category I Datetime: 05/23/2017 22:00 Stage of : Antepartum Maternal Assessment Level of Consciousness: Fully Conscious Headache: Denies Nausea/Vomiting: Present Labor Evaluation Frequency: 1-3 Monitor Mode: External Duration (sec)2399: 50-90 Quality: Mild Pattern: Normal: <= 5 Contractions in 10 Minutes Resting Tone [place]: Relaxed Heart Rate FHR Baseline Rate: 135 Monitor Mode: External US Variability: Moderate 6-25 bpm Accelerations: 15X15 Decelerations: None Category: Category I Datetime: 05/23/2017 21:22 Pain Assessment Pain Scale: 6 Pain Presence: Intermittent Pain Type: Cramping; Contraction Pain Location: Abdomen Pain Goal: 2 Pain Relief Measures: Comfort Measures Pain Assessment Comments: patient states she feels UCs but the pain has improved since earlier whe n she got here Datetime: 05/23/2017 21:18 Stage of : Antepartum Datetime: 05/23/2017 21:05 Time of Arrival: 05/23/2017 21:05 EGA: 35.1 Arrived By: Wheelchair Arrived From: Other Unit in Hospital Chief Complaint: CONTRACTIONS,SPOTTING, POSSIBLE LEAKING, COLD, COUGH, N/V Movement: Present Contractions: Irregular Time Contractions Began: 05/23/2017 19:00 Rupture of Membranes: Unsure Time Provider Notified: 05/24/2017 19:30 Provider Notified: WOLFGANG Initial Plan: EFM, IV HYDRATION,ZITHROMAX 500MG IVPB, CBC, CMP, STERILE SPECULUM, ROM PLUS, NS CRISTIAN AL SPRAY, BPP, CL Datetime: 05/23/2017 21:04 Assessment Type: Admission Assessment Maternal Assessment Level of Consciousness: Fully Conscious DTR's/Clonus: DTRs 2+; No Clonus Headache: Denies Blurred Vision: No Respiratory Effort: Unlabored; Regular Rhythm; Equal Expansion Breath Sounds, Left: Clear and Equal Breath Sounds, Right: Clear and Equal Nausea/Vomiting: Denies RUQ Epigastric Pain: Denies Lower Extremities Edema: None Degree: None Upper Extremities Edema: None Degree: None Facial Edema: None Fall Risk Assessment History of Falling: (0) No Secondary Diagnosis: (0) No Ambulatory Aid: (0) Bedrest/Nurse Assist IV Therapy: (0) No Gait: (0) Normal/Bedrest/Immobile Mental Status: (0) Oriented to Own Ability Fall Score: 0 Fall Risk Score Definition: No Risk: No action required Datetime: 05/23/2017 21:00 Stage of : OB Triage Labor Evaluation Frequency: 2-3 Monitor Mode: External Duration (sec)2399: 50-80 Quality: Mild Pattern: Normal: <= 5 Contractions in 10 Minutes Resting Tone [place]: Relaxed Heart Rate FHR Baseline Rate: 138 Monitor Mode: External US Variability: Moderate 6-25 bpm Accelerations: 15X15 Decelerations: None Category: Category I Pain Assessment Pain Scale: 7 Pain Presence: Intermittent Pain Type: Cramping; Dull; Stabbing; Ache Pain Location: Abdomen; Back Pain Goal: 3 Pain Relief Measures: Comfort Measures Datetime: 05/23/2017 20:00 Stage of : OB Triage Labor Evaluation Frequency: 2-6 Monitor Mode: External Duration (sec)2399: 60-120 Quality: Mild Pattern: Normal: <= 5 Contractions in 10 Minutes Resting Tone [place]: Relaxed Heart Rate FHR Baseline Rate: 140 Monitor Mode: External US Variability: Moderate 6-25 bpm Accelerations: 15X15 Decelerations: None Category: Category I Pain Assessment Pain Scale: 7 Pain Presence: Intermittent Pain Type: Cramping; Dull; Stabbing; Ache Pain Location: Abdomen; Back Pain Goal: 3 Pain Relief Measures: Comfort Measures Datetime: 05/23/2017 19:45 Vaginal Exam Pool: Positive Datetime: 05/23/2017 19:00 Stage of : OB Triage Labor Evaluation Frequency: 2-6 Monitor Mode: External Duration (sec)2399: 60-120 Quality: Mild Pattern: Normal: <= 5 Contractions in 10 Minutes Resting Tone [place]: Relaxed Heart Rate FHR Baseline Rate: 138 Monitor Mode: External US Variability: Moderate 6-25 bpm Accelerations: 15X15 Decelerations: None Category: Category I Pain Assessment Pain Scale: 7 Pain Presence: Intermittent Pain Type: Cramping; Dull; Stabbing; Ache Pain Location: Abdomen; Back Pain Goal: 3 Pain Relief Measures: Comfort Measures Datetime: 05/09/2017 19:30 Fall Score: 0 Fall Risk Score Definition: No Risk: No action required Datetime: 05/09/2017 13:04 EGA: 33.1 Datetime: 05/09/2017 13:00 Fall Score: 0 Fall Risk Score Definition: No Risk: No action required Datetime: 04/05/2017 14:00 Fall Score: 0 Fall Risk Score Definition: No Risk: No action required Datetime: 04/05/2017 12:00 EGA: 28.2 Datetime: 03/23/2017 00:15 EGA: 26.2
[2017-05-24] MEDS: FERROUS SULFATE (EC) 325 MG TAB PO SCH (08:46)
[2017-05-24] MEDS: PRENATAL VITAMIN PO SCH (08:46)
[2017-05-24] MEDS ORDERED: ALBUTEROL 18 GM INHALER INH SCH (10:00)
[2017-05-24] MEDS ORDERED: ALBUTEROL 18 GM INHALER INH PRN (10:30)
[2017-05-24] MEDS: LACTATED RINGER'S 1,000 ML IV SCH ×2 (12:54→19:00)
--- NOTE | 2017-05-24 20:25 | HP ---
Date/Time of Note Date/Time of Note DATE: 05/24/17 TIME: 20:15 OB - History Hx of Present Free Text/Dictation 22 y.o primigravida at 35w1d with c/o uterine contractions and vaginal spotting and coughing and nasal congestion and ? SROM also c/o nausea known to have asthma patient was here for decresae movement , polyhydramnios ?PTL, for the last month admittted for tocolysis with magnesium sulfate BMZ and care for her cold and asthma CVL 3cm from4.7 Chief Complaint: uc's : 1 Para: 0 Spontaneous : 0 Therapeutic : 0 Ultrasounds: Normal mid trimester US Obstetrical Complications: None Medical Complications: Respiratory (asthma) Past Family/Social History * Past Medical, Surgical, Family and Obstetric Histories reviewed from chart. Blood Type: Unknown Rubella: unknown RPR/VDRL: Unknown GBS Status: Unknown HBsAG: Unknown OB Admission Exam Vital Signs Vital Signs Vital Signs Date Time Temp Pulse Resp B/P Pulse Ox O2 Delivery O2 Flow Rate FiO2 05/23/17 20:03 108 05/23/17 20:01 98.9 18 102/56 Room Air Physical Exam HEENT: WNL Heart: Rhythm Normal Lungs: Clear, Equal Abdomen: WNL Extremities: Normal Reflexes: Normal Cervical Dilatation: None Effacement: 25% Station: Other Membranes: Intact Amniotic Fluid: Unevaluable Heart Rate: 140's Accelerations: Accelerations Present Decelerations: No Decelerations Varibility: Moderate Contractions on Admission: < 5 Minutes Apart Intensity: Moderate Last 72 hours Lab Results CBC & BMP 05/23/17 19:45 Magnesium Level Test 05/24/17 05:59 05/24/17 11:35 05/24/17 17:19 Magnesium Level 4.5 H 5.1 *H 5.0 H OB Assessment/Plan Reason for admission: labor Other Assessment: [id number] PTL asthma Other plan: as ordered JEAN GOSS MD May 24, 2017 20:25
[2017-05-24] MEDS ORDERED: AZITHROMYCIN 500MG/NS (PMX) 250 ML IVPB SCH (21:00)
[2017-05-24] MEDS: AZITHROMYCIN 250 MG in NS 250 ML IVPB SCH (21:36)
[2017-05-24] MEDS: ALBUTEROL/IPRATROPIUM (NEB) 3 ML AMP HHN PRN (22:58)
[2017-05-24] MEDS: BETAMET NA PHOS/AC(6 MG/ML) 5ML INJ IM SCH (23:11)
[2017-05-25] MEDS: ONDANSETRON 4 MG INJ IV PRN (04:06)
[2017-05-25] MEDS: GUAIFENESIN 20 MG/ML 5ML CUP PO PRN ×5 (04:39→21:29)
[2017-05-25] MEDS: LACTATED RINGER'S 1,000 ML IV SCH ×2 (04:40→17:35)
[2017-05-25] MEDS: ALBUTEROL/IPRATROPIUM (NEB) 3 ML AMP HHN PRN ×5 (05:47→22:39)
[2017-05-25] MEDS: MAGNESIUM SULFATE 20 GM/500 ML 500 ML IV SCH (06:01)
[2017-05-25] MEDS: FERROUS SULFATE (EC) 325 MG TAB PO SCH (09:04)
[2017-05-25] MEDS: PRENATAL VITAMIN PO SCH (09:04)
[2017-05-25] MEDS: DOCUSATE SODIUM 100 MG CAP PO PRN ×2 (10:32→21:12)
[2017-05-25 16:46] VITALS: BP_SYST 101; BP_SYST 136; BP_DIAS 52; BP_DIAS 73
[2017-05-25] MEDS: AZITHROMYCIN 250 MG in NS 250 ML IVPB SCH (21:12)
--- NOTE | 2017-05-25 22:13 | PN ---
Date/Time of Note Date/Time of Note DATE: 05/25/17 TIME: 22:06 OB Subjective Subjective Subjective feeling much better coughing less u.c not symptomatic eating better, breathing better OB Objective Objective Objective afebrile O2sat >98% EFM 1-2/UC/hr CVL reported 3 on 05/23 but actually 4cm WBC 13.800 but it has been stable Urine culture neg for growth OB Assessment/Plan Other Assessment: IUP 35w3d PTL S/p BMZx2 and MG asthma Other plan: consult to hospitalist (spoke to Dr Dunaway at 1814 on05/25/17) dc mg continue azithromycin 250mg daily for 2more days poss d/s home in am JEAN GOSS MD May 25, 2017 22:13
--- NOTE | 2017-05-26 05:28 | CONS ---
Date/Time of Note Date/Time of Note DATE: 05/26/17 TIME: 05:28 Assessment/Plan Assessment/Plan Additional Assessment/Plan ASSESSMENT 22-year-old female who is 35 weeks with a history of asthma with cough and shortness of breath, likely secondary to asthma exacerbation PLAN -Symptoms have improved after initiation of bronchodilators. She has also been on Zithromax -will give a dose of prednisone -Continue bronchodilators and antibiotic -Check a.m. lab Consultation Date/Type/Reason Admit Date/Time May 23, 2017 at 20:50 Hx of Present Illness This is a 22-year-old female who is 35 weeks with a history of asthma who is currently admitted to OB service for uterine contractions and vaginal spotting. Patient complained of cough, nasal congestion and shortness of breath and as such a medicine consult was placed. Cough is dry. She has been started with breathing treatments and with improvement of her symptoms. Denied chest pain, fever, chills, nausea or vomiting. She denied a history of intubation as a result of severe asthma. Past Surgical History Past Surgical Hx: other (Asthma) Social History Alcohol Use: other Smoking Status: Unknown if ever smoked Drug Use: none Exam/Review of Systems Vital Signs Vitals Vital Signs Date Time Temp Pulse Resp B/P Pulse Ox O2 Delivery O2 Flow Rate FiO2 05/25/17 22:39 97 20 97 21 05/25/17 16:46 98.3 101/52 05/23/17 20:01 Room Air Intake and Output 05/25/17 05/25/17 05/26/17 15:00 23:00 07:00 Intake Total 1475 ml 3325 ml 280 ml Output Total 1500 ml 3100 ml 300 ml Balance -25 ml 225 ml -20 ml Exam Constitutional: alert, oriented, well developed Head: atraumatic, normocephalic Eyes: EOMI, PERRL Respiratory: clear to auscultation, normal air movement Cardiovascular: nl pulses, regular rate and rhythm Gastrointestinal: non-tender Extremities: normal pulses Results Result Diagram: 05/23/171944 Results 24 hrs Laboratory Tests Test 05/25/17 06:53 05/25/17 11:53 Magnesium Level 5.4 *H 5.3 *H Medications Medications Current Medications Sodium Chloride (Deep Sea) 1 spray Q2 PRN NASAL STUFF NOSE Last administered on 05/23/17t 22:09; Admin Dose 1 SPRAY; Start 05/23/17 at 20:30 Ondansetron HCl (Zofran Inj) 4 mg Q6H PRN IV NAUSEA AND/OR VOMITING Last administered on 05/25/17 04:06; Admin Dose 4 MG; Start 05/23/17 at 20:30 Prenat Multivit/ Zavala/Iron/Folic Ac () 1 tab DAILY PO Last administered on 05/25/17 09:04; Admin Dose 1 TAB; Start 05/24/17 at 09:00 Ferrous Sulfate (Ferrous Sulfate (Ec)) 325 mg DAILY PO Last administered on 09:04; Admin Dose 325 MG; Start 05/24/17 at 09:00 Acetaminophen (Tylenol Tab) 650 mg Q4H PRN PO PAIN AND OR ELEVATED TEMP; Start 05/23/17 at 20:30 Guaifenesin (Robitussin Liquid Cup) 100 mg Q4H PRN PO COUGH Last administered on 05/25/17 21:29; Admin Dose 100 MG; Start 05/24/17 at 10:00 Docusate Sodium (Colace) 100 mg BID PRN PO CONSTIPATION Last administered on 21:12; Admin Dose 100 MG; Start 05/25/17 at 10:30 Azithromycin (Zithromax) 250 mg DAILY PO ; Start 05/26/17 at 09:00; Stop at 10:00 NATALIE ALICIA MD May 26, 2017 05:28
[2017-05-26] MEDS ORDERED: METHYLPREDNISOLONE 125 MG INJ IV STA (05:29)
[2017-05-26] MEDS ORDERED: predniSONE 20 MG TAB PO ONE (07:00)
[2017-05-26] MEDS: ALBUTEROL/IPRATROPIUM (NEB) 3 ML AMP HHN PRN (07:15)
[2017-05-26] MEDS: GUAIFENESIN 20 MG/ML 5ML CUP PO PRN (07:54)
[2017-05-26] MEDS ORDERED: AZITHROMYCIN 250 MG TAB PO SCH (09:00)
[2017-05-26 09:40] LABS: BASOPHILS % 0.2 % (0.0-2.0); EOSINOPHILS % 0.1 % (0.0-7.0); HEMATOCRIT 27.5 % (37.0-47.0); HEMOGLOBIN 9.1 g/dl (12.0-16.0); LYMPHOCYTES % 13.2 % (15.0-51.0); MEAN CORPUSCULAR HEMOGLOBIN 27.8 pg (29.0-33.0); MEAN CORPUSCULAR HGB CONC 33.1 g/dl (32.0-37.0); MEAN CORPUSCULAR VOLUME 84.1 fl (82.0-101.0); MEAN PLATELET VOLUME 11.2 fl (7.4-10.4); MONOCYTE # 0.6 10^3/ul (0.3-0.9); MONOCYTES % 4.2 % (0.0-11.0); NEUTROPHIL # 11.8 10^3/ul (1.6-7.5); NEUTROPHILS % 79.3 % (39.0-77.0); NUCLEATED RED BLOOD CELLS% 0.2 /100WBC (0.0-0.0); PLATELET COUNT 185 10^3/UL (140-415); RED BLOOD COUNT 3.27 10^6/ul (4.20-5.40); RED CELL DISTRIBUTION WIDTH 14.6 % (11.5-14.5); WHITE BLOOD COUNT 14.9 10^3/ul (4.8-10.8)
[2017-05-26 10:07] LABS: ALBUMIN 3.1 g/dl (3.3-4.9); ALBUMIN/GLOBULIN RATIO 0.93; BILIRUBIN,INDIRECT 0.2 mg/dl (0-1.1); BILIRUBIN,TOTAL 0.2 mg/dl (0.2-1.3); CALCIUM 8.8 mg/dl (8.4-10.2); CREATININE 0.46 mg/dl (0.44-1.00); POTASSIUM 3.2 mmol/L (3.5-5.1); TOTAL PROTEIN 6.4 g/dl (6.1-8.1)
[2017-05-26] MEDS ORDERED: AZIT250T6 PO (10:30)
== END 2017-05-26 10:50 | disposition home or self-care (01) | DRG 778 ==
LOC: OBT 18:03 → L-D 18:05 → OBG 20:50 → OBT 20:50 → OBG 21:00
PROVIDERS: ADMIT Obstetrics & Gynecology; ATTEND Obstetrics & Gynecology
DX: O60.03 Preterm labor without delivery, third trimester (principal); J00 Acute nasopharyngitis [common cold]; O26.853 Spotting complicating pregnancy, third trimester; O99.513 Diseases of the respiratory system complicating pregnancy, third trimester; J45.909 Unspecified asthma, uncomplicated; Z3A.35 35 weeks gestation of pregnancy
CPT/HCPCS: 36415; 76817; 76818; 80053; 81003; 83735; 84112; 85025; 87086; 94640; 94664; 96360; G0463; J0456; J0702; J2405; J2930; J3475; J7050; J7120; J7512

== ENCOUNTER 2017-06-11 00:30 | Outpatient (CLI) | payer OTHER ==
[~2017-06-11] VITALS: Ht 149.9 cm; Wt 69.1 kg
[~2017-06-11 00:30] MED LIST changes: +AZIT250T6 PO
[2017-06-11 00:45] VITALS: BP 108/56; PULSE 77; RESP 18
[2017-06-11 00:48] VITALS: Ht 149.9 cm; Wt 69.1 kg
--- NOTE | 2017-06-11 02:06 | RADRPT ---
PROCEDURE: Biophysical profile. CLINICAL INDICATION: Pelvic pain. TECHNIQUE: Multiple sonographic images of the pelvis were obtained with transabdominal technique. COMPARISON: 05/23/2017. FINDINGS: There is a single living intrauterine gestation with the fetus in a vertex position. The placenta i s fundal in location, grade 3. heart tones of 132 beats per minute are identified. There is n ormal amniotic fluid volume with an HINA of 12.8 cm. The testicles are visualized. There are mi ld scrotal hydroceles. breathing movements = 2 Gross body movements = 2 tone = 2 Qualitative AFV = 2 IMPRESSION: Biophysical profile 8 out of 8. .Gabriel Varela MD, Date Time Electronically viewed and signed by .Gabriel Varela MD, MD on 06/11/2017 02:06 .T/
--- NOTE | 2017-06-11 02:27 | PN ---
Triage Information Date/Time Reason for visit: Uterine contractions Weeks of Gestation 37w 6d /Para Objective Vital Signs Date Time Temp Pulse Resp B/P Pulse Ox O2 Delivery O2 Flow Rate FiO2 06/11/17 00:45 98.5 77 18 108/56 Room Air Heart Rate Comments reactive Contractions: >10 Minutes Apart Exam /3 Results/Medications Imaging Results BPP 8/8, HINA 12.8cm Disposition: Discharge Assessment/Plan 22 y/o at 37w 6d with contractions, not in active labor -discharge home with labor precautions -f/u with OB ALVIN SUN Jun 11, 2017 02:27
--- NOTE | 2017-06-11 02:44 | TRIAGE ---
OB Triage Datetime Report Generated by CPN: 06/11/2017 02:43 Datetime: 06/11/2017 02:20 Stage of : OB Triage Datetime: 06/11/2017 01:52 Vaginal Exam Dilatation (cms): 1.0 Effacement (%): 60 Station: -3 Datetime: 06/11/2017 01:30 Labor Evaluation Frequency: 5-12 Monitor Mode: External Duration (sec)2399: 50-70 Pattern: Normal: <= 5 Contractions in 10 Minutes Heart Rate FHR Baseline Rate: 125 Monitor Mode: External US FHR Baseline Changes: No Baseline Change Variability: Moderate 6-25 bpm Accelerations: 15X15 Decelerations: None Datetime: 06/11/2017 00:41 Assessment Type: Triage Maternal Assessment Level of Consciousness: Fully Conscious DTR's/Clonus: DTRs 2+; No Clonus Headache: Denies Blurred Vision: No Respiratory Effort: Unlabored; Regular Rhythm; Equal Expansion Breath Sounds, Left: Clear and Equal Breath Sounds, Right: Clear and Equal Nausea/Vomiting: Denies RUQ Epigastric Pain: Denies Facial Edema: None Fall Risk Assessment History of Falling: (0) No Secondary Diagnosis: (0) No Ambulatory Aid: (0) Bedrest/Nurse Assist IV Therapy: (0) No Gait: (0) Normal/Bedrest/Immobile Mental Status: (0) Oriented to Own Ability Fall Score: 0 Fall Risk Score Definition: No Risk: No action required Comment: PRESENTED TO TRIAGE C_O UC'S PLACED ON EFM. CALL LIGHT WITHIN REACH. FOB SUPPORTIVE AT BE DSIDE Datetime: 06/11/2017 00:40 Labor Evaluation Frequency: irregular Monitor Mode: External Quality: Mild Pattern: Normal: <= 5 Contractions in 10 Minutes Resting Tone [place]: Relaxed Heart Rate FHR Baseline Rate: 125 Monitor Mode: External US Datetime: 06/11/2017 00:39 Stage of : OB Triage Time of Arrival: 06/11/2017 00:40 EGA: 37.6 Arrived By: Ambulatory Arrived From: Home Chief Complaint: C_O UC'S AND BACK PAIN Movement: Present Contractions: Irregular Time Contractions Began: 06/10/2017 22:00 Rupture of Membranes: Denies Vaginal Bleeding: None Vaginal Discharge: Denies Recent Sexual Intercouse: Denies Abdominal Trauma: Not Applicable Patient Complaints: Contractions Time Provider Notified: 06/11/2017 01:05 Provider Notified: Dr. Suarez Initial Plan: EFM, NST, BPP Temperature Route: Oral Datetime: 05/26/2017 09:59 Respiratory Effort: Unlabored Labor Evaluation Frequency: 5 Monitor Mode: External Duration (sec)2399: 30-50 Quality: Mild Resting Tone [place]: Relaxed Contraction Comments: pt denies feeling contractions, leaking of fluid or vaginal bleeding Heart Rate FHR Baseline Rate: 130 FHR Baseline Changes: No Baseline Change Variability: Moderate 6-25 bpm Accelerations: 15X15 Decelerations: None Category: Category I Datetime: 05/26/2017 08:59 Labor Evaluation Frequency: 5 Monitor Mode: External Duration (sec)2399: 30-60 Quality: Mild Resting Tone [place]: Relaxed Contraction Comments: pt denies feeling contractions Heart Rate FHR Baseline Rate: 130 Monitor Mode: External US FHR Baseline Changes: No Baseline Change Variability: Moderate 6-25 bpm Accelerations: 15X15 Decelerations: None Category: Category I Datetime: 05/26/2017 08:07 Assessment Type: Ongoing Assessment Maternal Assessment Level of Consciousness: Fully Conscious DTR's/Clonus: DTRs 2+; No Clonus Headache: Denies Blurred Vision: No Respiratory Effort: Unlabored; Regular Rhythm; Equal Expansion Breath Sounds, Left: Clear and Equal Breath Sounds, Right: Clear and Equal Nausea/Vomiting: Denies RUQ Epigastric Pain: Denies Facial Edema: None Fall Risk Assessment History of Falling: (0) No Secondary Diagnosis: (0) No Ambulatory Aid: (0) Bedrest/Nurse Assist IV Therapy: (0) No Gait: (0) Normal/Bedrest/Immobile Mental Status: (0) Oriented to Own Ability Fall Score: 0 Fall Risk Score Definition: No Risk: No action required Datetime: 05/26/2017 08:06 Pain Presence: None/Denies Datetime: 05/26/2017 08:05 Respiratory Effort: Unlabored Breath Sounds, Left: Clear and Equal Breath Sounds, Right: Clear and Equal Labor Evaluation Frequency: 4 Monitor Mode: External Duration (sec)2399: 30-70 Quality: Mild Resting Tone [place]: Relaxed Contraction Comments: pt denies feeling contractions Heart Rate FHR Baseline Rate: 140 Monitor Mode: External US FHR Baseline Changes: No Baseline Change Variability: Moderate 6-25 bpm Accelerations: 15X15 Decelerations: None Category: Category I Datetime: 05/26/2017 06:43 Labor Evaluation Frequency: x7 Monitor Mode: External Duration (sec)2399: 50-130 Quality: Mild Resting Tone [place]: Relaxed Contraction Comments: pt denies feeling any ucs at this time. Heart Rate FHR Baseline Rate: 130 Monitor Mode: External US FHR Baseline Changes: No Baseline Change Variability: Moderate 6-25 bpm Accelerations: 15X15 Decelerations: None Category: Category I Datetime: 05/26/2017 06:00 Labor Evaluation Frequency: x6 Monitor Mode: External Duration (sec)2399: 40-80 Quality: Mild Resting Tone [place]: Relaxed Contraction Comments: Pt states no ucs felt at this time. Heart Rate FHR Baseline Rate: 125 Monitor Mode: External US FHR Baseline Changes: No Baseline Change Variability: Moderate 6-25 bpm Accelerations: 15X15 Decelerations: None Category: Category I Pain Assessment Pain Scale: 0 Pain Presence: None/Denies Datetime: 05/26/2017 05:00 Labor Evaluation Frequency: x5 Monitor Mode: External Duration (sec)2399: 40-80 Quality: Mild Resting Tone [place]: Relaxed Contraction Comments: pt without complaint of uc pain. Heart Rate FHR Baseline Rate: 130 Monitor Mode: External US FHR Baseline Changes: No Baseline Change Variability: Moderate 6-25 bpm Accelerations: 15X15 Decelerations: None Category: Category I Datetime: 05/26/2017 04:18 Stage of : Antepartum Temperature Route: Oral Datetime: 05/26/2017 04:00 Labor Evaluation Frequency: x2 Monitor Mode: External Duration (sec)2399: 80 Quality: Mild Resting Tone [place]: Relaxed Contraction Comments: pt without complaint of uc pain Heart Rate FHR Baseline Rate: 130 Monitor Mode: External US FHR Baseline Changes: No Baseline Change Variability: Moderate 6-25 bpm Accelerations: 15X15 Decelerations: None Category: Category I Datetime: 05/26/2017 03:00 Labor Evaluation Frequency: x2 Monitor Mode: External Duration (sec)2399: 40-120 Quality: Mild Resting Tone [place]: Relaxed Contraction Comments: pt without complaint of uc pain. Heart Rate FHR Baseline Rate: 130 Monitor Mode: External US FHR Baseline Changes: No Baseline Change Variability: Moderate 6-25 bpm Accelerations: 15X15 Decelerations: None Category: Category I Datetime: 05/26/2017 02:00 Labor Evaluation Frequency: none Monitor Mode: External Resting Tone [place]: Relaxed Heart Rate FHR Baseline Rate: 130 Monitor Mode: External US FHR Baseline Changes: No Baseline Change Variability: Moderate 6-25 bpm Accelerations: 15X15 Decelerations: None Category: Category I Datetime: 05/26/2017 01:00 Labor Evaluation Frequency: x2 Monitor Mode: External Duration (sec)2399: 40-110 Quality: Mild Resting Tone [place]: Relaxed Contraction Comments: pt without complaint of uc pain. Heart Rate FHR Baseline Rate: 135 Monitor Mode: External US FHR Baseline Changes: No Baseline Change Variability: Moderate 6-25 bpm Accelerations: 15X15 Decelerations: None Category: Category I Datetime: 05/26/2017 00:10 Stage of : Antepartum Temperature Route: Oral Datetime: 05/26/2017 00:00 Labor Evaluation Frequency: none Monitor Mode: External Resting Tone [place]: Relaxed Heart Rate FHR Baseline Rate: 135 Monitor Mode: External US FHR Baseline Changes: No Baseline Change Variability: Moderate 6-25 bpm Accelerations: 15X15 Decelerations: None Category: Category I Datetime: 05/25/2017 23:00 Labor Evaluation Frequency: none Monitor Mode: External Resting Tone [place]: Relaxed Heart Rate FHR Baseline Rate: 135 Monitor Mode: External US FHR Baseline Changes: No Baseline Change Variability: Moderate 6-25 bpm Accelerations: 15X15 Decelerations: None Category: Category I Pain Assessment Pain Scale: 0 Pain Presence: None/Denies Datetime: 05/25/2017 22:00 Labor Evaluation Frequency: none Monitor Mode: External Resting Tone [place]: Relaxed Heart Rate FHR Baseline Rate: 130 Monitor Mode: External US FHR Baseline Changes: No Baseline Change Variability: Moderate 6-25 bpm Accelerations: 15X15 Decelerations: None Category: Category I Pain Assessment Pain Scale: 0 Pain Presence: None/Denies Datetime: 05/25/2017 21:00 Labor Evaluation Frequency: none Monitor Mode: External Resting Tone [place]: Relaxed Heart Rate FHR Baseline Rate: 125 Monitor Mode: External US FHR Baseline Changes: No Baseline Change Variability: Moderate 6-25 bpm Accelerations: 15X15 Decelerations: None Category: Category I Pain Assessment Pain Scale: 0 Pain Presence: None/Denies Datetime: 05/25/2017 20:00 Labor Evaluation Frequency: none Monitor Mode: External Resting Tone [place]: Relaxed Heart Rate FHR Baseline Rate: 120 Monitor Mode: External US FHR Baseline Changes: No Baseline Change Variability: Moderate 6-25 bpm Accelerations: 15X15 Decelerations: None Category: Category I Pain Assessment Pain Scale: 0 Pain Presence: None/Denies Datetime: 05/25/2017 19:49 Stage of : Antepartum Assessment Type: Ongoing Assessment Maternal Assessment Level of Consciousness: Fully Conscious DTR's/Clonus: DTRs 2+; No Clonus Headache: Denies Blurred Vision: No Respiratory Effort: Unlabored; Regular Rhythm; Equal Expansion Breath Sounds, Left: Clear and Equal Breath Sounds, Right: Clear and Equal Nausea/Vomiting: Denies RUQ Epigastric Pain: Denies Lower Extremities Edema: None Degree: None Upper Extremities Edema: None Degree: None Facial Edema: None Temperature Route: Oral Fall Risk Assessment History of Falling: (0) No Secondary Diagnosis: (0) No Ambulatory Aid: (0) Bedrest/Nurse Assist IV Therapy: (20) Yes Gait: (0) Normal/Bedrest/Immobile Mental Status: (0) Oriented to Own Ability Fall Score: 20 Fall Risk Score Definition: No Risk: No action required Datetime: 05/25/2017 19:00 Labor Evaluation Frequency: 1 with irritability Monitor Mode: External Duration (sec)2399: 90 Quality: Mild Resting Tone [place]: Relaxed Heart Rate FHR Baseline Rate: 130 Monitor Mode: External US FHR Baseline Changes: No Baseline Change Variability: Moderate 6-25 bpm Accelerations: 15X15 Decelerations: None Category: Category I Datetime: 05/25/2017 17:41 Contraction Comments: changed toco, broken Datetime: 05/25/2017 17:31 Maternal Assessment Level of Consciousness: Fully Conscious DTR's/Clonus: DTRs 3+ Headache: Denies Blurred Vision: No Breath Sounds, Left: Diminished Breath Sounds, Right: Diminished Nausea/Vomiting: Denies RUQ Epigastric Pain: Denies Facial Edema: None Datetime: 05/25/2017 16:39 Labor Evaluation Frequency: 3 Monitor Mode: External Duration (sec)2399: 50 and irritability Quality: Mild Resting Tone [place]: Relaxed Heart Rate FHR Baseline Rate: 120 Monitor Mode: External US FHR Baseline Changes: No Baseline Change Variability: Moderate 6-25 bpm Accelerations: 15X15 Decelerations: None Category: Category I Pain Presence: None/Denies Datetime: 05/25/2017 15:46 Breath Sounds, Left: Diminished Breath Sounds, Right: Diminished Labor Evaluation Frequency: 0 Monitor Mode: External Resting Tone [place]: Relaxed Heart Rate FHR Baseline Rate: 120 Monitor Mode: External US FHR Baseline Changes: No Baseline Change Variability: Moderate 6-25 bpm Accelerations: 15X15 Decelerations: None Category: Category I Pain Presence: None/Denies Datetime: 05/25/2017 14:55 Maternal Assessment Level of Consciousness: Fully Conscious DTR's/Clonus: DTRs 3+ Headache: Denies Blurred Vision: No Nausea/Vomiting: Denies Labor Evaluation Frequency: 0 Monitor Mode: External Resting Tone [place]: Relaxed Heart Rate FHR Baseline Rate: 120 Monitor Mode: External US FHR Baseline Changes: No Baseline Change Variability: Moderate 6-25 bpm Accelerations: 15X15 Decelerations: None Category: Category I Datetime: 05/25/2017 13:55 Labor Evaluation Frequency: 0 Monitor Mode: External Resting Tone [place]: Relaxed Heart Rate FHR Baseline Rate: 120 Monitor Mode: External US FHR Baseline Changes: No Baseline Change Variability: Moderate 6-25 bpm Accelerations: 15X15 Decelerations: None Category: Category I Pain Presence: None/Denies Datetime: 05/25/2017 12:59 Labor Evaluation Frequency: 1 Monitor Mode: External Duration (sec)2399: 50 Quality: Mild Resting Tone [place]: Relaxed Heart Rate FHR Baseline Rate: 120 Monitor Mode: External US FHR Baseline Changes: No Baseline Change Variability: Moderate 6-25 bpm Accelerations: 15X15 Decelerations: None Category: Category I Pain Presence: None/Denies Datetime: 05/25/2017 12:02 Labor Evaluation Frequency: 0 Monitor Mode: External Resting Tone [place]: Relaxed Heart Rate FHR Baseline Rate: 120 Monitor Mode: External US FHR Baseline Changes: No Baseline Change Variability: Moderate 6-25 bpm Accelerations: 15X15 Decelerations: None Category: Category I Pain Presence: None/Denies Datetime: 05/25/2017 10:59 Maternal Assessment Level of Consciousness: Fully Conscious DTR's/Clonus: DTRs 3+ Blurred Vision: No Nausea/Vomiting: Denies RUQ Epigastric Pain: Denies Facial Edema: None Labor Evaluation Frequency: 1 with irritabilirty Monitor Mode: External Quality: Mild Resting Tone [place]: Relaxed Heart Rate FHR Baseline Rate: 115 Monitor Mode: External US FHR Baseline Changes: No Baseline Change Variability: Moderate 6-25 bpm Accelerations: 15X15 Decelerations: None Category: Category I Datetime: 05/25/2017 09:02 Labor Evaluation Frequency: irritability Monitor Mode: External Quality: Mild Resting Tone [place]: Relaxed Heart Rate FHR Baseline Rate: 110 Monitor Mode: External US FHR Baseline Changes: No Baseline Change Variability: Moderate 6-25 bpm Accelerations: 15X15 Decelerations: None Category: Category I Pain Presence: None/Denies Datetime: 05/25/2017 08:34 Maternal Assessment Level of Consciousness: Fully Conscious DTR's/Clonus: DTRs 3+ Headache: Denies Blurred Vision: No Nausea/Vomiting: Denies RUQ Epigastric Pain: Denies Datetime: 05/25/2017 08:15 Stage of : Antepartum Datetime: 05/25/2017 08:07 Assessment Type: Ongoing Assessment Maternal Assessment Level of Consciousness: Fully Conscious DTR's/Clonus: DTRs 2+; No Clonus Headache: Denies Blurred Vision: No Respiratory Effort: Unlabored; Regular Rhythm; Equal Expansion Breath Sounds, Left: Diminished Breath Sounds, Right: Diminished Nausea/Vomiting: Denies RUQ Epigastric Pain: Denies Facial Edema: None Fall Risk Assessment History of Falling: (0) No Secondary Diagnosis: (0) No Ambulatory Aid: (0) Bedrest/Nurse Assist Gait: (0) Normal/Bedrest/Immobile Mental Status: (0) Oriented to Own Ability Datetime: 05/25/2017 08:05 Labor Evaluation Frequency: 1 Monitor Mode: External Duration (sec)2399: 60 Quality: Mild Resting Tone [place]: Relaxed Heart Rate FHR Baseline Rate: 110 Monitor Mode: External US FHR Baseline Changes: No Baseline Change Variability: Moderate 6-25 bpm Accelerations: 15X15 Decelerations: None Category: Category I Datetime: 05/25/2017 07:00 Labor Evaluation Frequency: NONE Monitor Mode: External Resting Tone [place]: Relaxed Heart Rate FHR Baseline Rate: 120 Monitor Mode: External US Variability: Moderate 6-25 bpm Accelerations: 15X15 Decelerations: None Category: Category I Pain Presence: None/Denies Pain Type: N/A Pain Assessment Comments: PT SLEEPING WITH EVEN UNLABORED BREATHING Datetime: 05/25/2017 06:01 Stage of : Antepartum Datetime: 05/25/2017 06:00 DTR's/Clonus: DTRs 2+; No Clonus Labor Evaluation Frequency: NONE Monitor Mode: External Resting Tone [place]: Relaxed Heart Rate FHR Baseline Rate: 120 Variability: Moderate 6-25 bpm Accelerations: 15X15 Decelerations: None Category: Category I Pain Presence: None/Denies Pain Type: N/A Datetime: 05/25/2017 05:00 Labor Evaluation Frequency: NONE Monitor Mode: External Resting Tone [place]: Relaxed Heart Rate FHR Baseline Rate: 115 Variability: Moderate 6-25 bpm Accelerations: 15X15 Decelerations: None Category: Category I Pain Presence: None/Denies Pain Type: N/A Datetime: 05/25/2017 04:40 Stage of : Antepartum Datetime: 05/25/2017 04:15 Stage of : Antepartum Datetime: 05/25/2017 04:06 Stage of : Antepartum Datetime: 05/25/2017 04:00 DTR's/Clonus: DTRs 2+; No Clonus Breath Sounds, Left: Clear and Equal Breath Sounds, Right: Clear and Equal Labor Evaluation Frequency: X1 Monitor Mode: External Duration (sec)2399: 100 Quality: Mild Resting Tone [place]: Relaxed Heart Rate FHR Baseline Rate: 110 Monitor Mode: External US Variability: Moderate 6-25 bpm Accelerations: 15X15 Decelerations: None Category: Category I Pain Presence: None/Denies Pain Type: N/A Datetime: 05/25/2017 03:00 Labor Evaluation Frequency: NONE Monitor Mode: External Resting Tone [place]: Relaxed Heart Rate FHR Baseline Rate: 110 Variability: Moderate 6-25 bpm Accelerations: 15X15 Decelerations: None Category: Category I Pain Presence: None/Denies Pain Type: N/A Pain Assessment Comments: PT SLEEPING WITH EVEN UNLABORED BREATHING Datetime: 05/25/2017 02:00 DTR's/Clonus: DTRs 2+; No Clonus Labor Evaluation Frequency: X2 Monitor Mode: External Duration (sec)2399: 60-90 Quality: Mild Resting Tone [place]: Relaxed Monitor Mode: External US Comments: LOC DUE TO TO PTS SLEEPING POSITION Pain Presence: None/Denies Pain Type: N/A Datetime: 05/25/2017 01:00 Heart Rate FHR Baseline Rate: 130 Comments: LOC DUE TO ACTIVE FETUS Pain Presence: None/Denies Pain Type: N/A Pain Assessment Comments: PT SLEEPING WITH EVEN UNLABORED BREATHING Datetime: 05/25/2017 00:00 DTR's/Clonus: DTRs 2+; No Clonus Breath Sounds, Left: Clear and Equal Breath Sounds, Right: Clear and Equal Labor Evaluation Frequency: NONE Monitor Mode: External Resting Tone [place]: Relaxed Heart Rate FHR Baseline Rate: 120 Monitor Mode: External US Variability: Moderate 6-25 bpm Accelerations: 15X15 Decelerations: None Category: Category I Pain Presence: None/Denies Pain Type: N/A Datetime: 05/24/2017 23:11 Stage of : Antepartum Datetime: 05/24/2017 23:00 Labor Evaluation Frequency: X2 Monitor Mode: External Duration (sec)2399: 90-110 Quality: Mild Resting Tone [place]: Relaxed Heart Rate FHR Baseline Rate: 120 Monitor Mode: External US Variability: Moderate 6-25 bpm Accelerations: 15X15 Decelerations: None Category: Category I Pain Presence: None/Denies Pain Type: N/A Datetime: 05/24/2017 22:20 Stage of : Antepartum Datetime: 05/24/2017 22:00 DTR's/Clonus: DTRs 2+; No Clonus Labor Evaluation Frequency: X1 Monitor Mode: External Duration (sec)2399: 210 Quality: Mild Resting Tone [place]: Relaxed Contraction Comments: PT DID NOT FEEL THE CONTRACTION Heart Rate FHR Baseline Rate: 115 Monitor Mode: External US Variability: Moderate 6-25 bpm Accelerations: 15X15 Decelerations: None Category: Category I Pain Presence: None/Denies Pain Type: N/A Datetime: 05/24/2017 21:45 Stage of : Antepartum Datetime: 05/24/2017 21:00 Labor Evaluation Frequency: X2 Monitor Mode: External Duration (sec)2399: 90-100 Quality: Mild Resting Tone [place]: Relaxed Contraction Comments: PT DENIES FEELING UC'S Heart Rate FHR Baseline Rate: 115 Monitor Mode: External US Variability: Moderate 6-25 bpm Accelerations: 15X15 Decelerations: None Category: Category I Pain Presence: None/Denies Pain Type: N/A Datetime: 05/24/2017 20:00 Labor Evaluation Frequency: NONE Monitor Mode: External Resting Tone [place]: Relaxed Heart Rate FHR Baseline Rate: 115 Monitor Mode: External US Variability: Moderate 6-25 bpm Accelerations: 15X15 Decelerations: None Category: Category I Pain Presence: None/Denies Pain Type: N/A Datetime: 05/24/2017 19:51 Stage of : Antepartum Datetime: 05/24/2017 19:46 Stage of : Antepartum Assessment Type: Ongoing Assessment Maternal Assessment Level of Consciousness: Fully Conscious DTR's/Clonus: DTRs 2+; No Clonus Headache: Denies Blurred Vision: No Respiratory Effort: Unlabored; Regular Rhythm; Equal Expansion Breath Sounds, Left: Clear and Equal Breath Sounds, Right: Clear and Equal Nausea/Vomiting: Denies RUQ Epigastric Pain: Denies Lower Extremities Edema: None Degree: None Upper Extremities Edema: None Degree: None Facial Edema: None Temperature Route: Oral Fall Risk Assessment History of Falling: (0) No Secondary Diagnosis: (0) No Ambulatory Aid: (0) Bedrest/Nurse Assist IV Therapy: (0) No Gait: (0) Normal/Bedrest/Immobile Mental Status: (0) Oriented to Own Ability Fall Score: 0 Fall Risk Score Definition: No Risk: No action required Pain Presence: None/Denies Pain Type: N/A Amniotic Fluid Amount: None Vaginal Bleeding: None Datetime: 05/24/2017 18:44 Labor Evaluation Frequency: X1 Monitor Mode: External Duration (sec)2399: 40 Quality: Mild Pattern: Normal: <= 5 Contractions in 10 Minutes Resting Tone [place]: Relaxed Heart Rate FHR Baseline Rate: 110 Monitor Mode: External US FHR Baseline Changes: No Baseline Change Variability: Absent - Undetectable Accelerations: 15X15 Decelerations: None Category: Category I Datetime: 05/24/2017 18:00 Labor Evaluation Frequency: X3 Monitor Mode: External Duration (sec)2399: 50-60 Quality: Mild Pattern: Normal: <= 5 Contractions in 10 Minutes Resting Tone [place]: Relaxed Heart Rate FHR Baseline Rate: 110 Monitor Mode: External US FHR Baseline Changes: No Baseline Change Variability: Moderate 6-25 bpm Accelerations: 15X15 Decelerations: None Category: Category I Datetime: 05/24/2017 17:00 Labor Evaluation Frequency: X1 Monitor Mode: External Duration (sec)2399: 60 Quality: Mild Pattern: Normal: <= 5 Contractions in 10 Minutes Resting Tone [place]: Relaxed Heart Rate FHR Baseline Rate: 110 Monitor Mode: External US FHR Baseline Changes: No Baseline Change Variability: Moderate 6-25 bpm Accelerations: 15X15 Decelerations: None Category: Category I Datetime: 05/24/2017 15:50 Stage of : Antepartum Temperature Route: Oral Datetime: 05/24/2017 15:00 Labor Evaluation Frequency: X2 Monitor Mode: External Duration (sec)2399: 40-70 Quality: Mild Pattern: Normal: <= 5 Contractions in 10 Minutes Resting Tone [place]: Relaxed Heart Rate FHR Baseline Rate: 115 Monitor Mode: External US FHR Baseline Changes: No Baseline Change Variability: Moderate 6-25 bpm Accelerations: 15X15 Decelerations: None Category: Category I Datetime: 05/24/2017 13:59 Labor Evaluation Frequency: X3 Monitor Mode: External Duration (sec)2399: 40-60 Quality: Mild Pattern: Normal: <= 5 Contractions in 10 Minutes Resting Tone [place]: Relaxed Heart Rate FHR Baseline Rate: 135 Monitor Mode: External US FHR Baseline Changes: No Baseline Change Variability: Moderate 6-25 bpm Accelerations: 15X15 Decelerations: None Category: Category I Pain Assessment Pain Scale: 0 Pain Presence: None/Denies Pain Type: N/A Pain Goal: 3 Datetime: 05/24/2017 13:00 Labor Evaluation Frequency: X1 Monitor Mode: External Duration (sec)2399: 50 Quality: Mild Pattern: Normal: <= 5 Contractions in 10 Minutes Resting Tone [place]: Relaxed Heart Rate FHR Baseline Rate: 125 Monitor Mode: External US FHR Baseline Changes: No Baseline Change Variability: Moderate 6-25 bpm Accelerations: 15X15 Decelerations: None Category: Category I Pain Assessment Pain Scale: 0 Pain Presence: None/Denies Pain Type: N/A Pain Goal: 3 Datetime: 05/24/2017 12:12 Stage of : Antepartum Temperature Route: Oral Datetime: 05/24/2017 12:01 Labor Evaluation Frequency: 0 Monitor Mode: External Duration (sec)2399: 0 Resting Tone [place]: Relaxed Heart Rate FHR Baseline Rate: 120 FHR Baseline Changes: No Baseline Change Variability: Moderate 6-25 bpm Accelerations: 15X15 Decelerations: None Category: Category I Datetime: 05/24/2017 11:00 Labor Evaluation Frequency: x1 Monitor Mode: External Duration (sec)2399: 50 Quality: Mild Pattern: Normal: <= 5 Contractions in 10 Minutes Resting Tone [place]: Relaxed Heart Rate FHR Baseline Rate: 115 FHR Baseline Changes: No Baseline Change Variability: Moderate 6-25 bpm Accelerations: 15X15 Decelerations: None Category: Category I Pain Assessment Pain Scale: 0 Pain Presence: None/Denies Pain Type: N/A Pain Goal: 3 Datetime: 05/24/2017 09:48 Labor Evaluation Frequency: X2 Monitor Mode: External Duration (sec)2399: 40-60 Quality: Mild Pattern: Normal: <= 5 Contractions in 10 Minutes Resting Tone [place]: Relaxed Heart Rate FHR Baseline Rate: 115 Monitor Mode: External US FHR Baseline Changes: No Baseline Change Variability: Moderate 6-25 bpm Accelerations: 10X10 Decelerations: None Category: Category I Datetime: 05/24/2017 09:00 Labor Evaluation Frequency: X3 Monitor Mode: External Duration (sec)2399: 40-110 Quality: Mild Pattern: Normal: <= 5 Contractions in 10 Minutes Resting Tone [place]: Relaxed Heart Rate FHR Baseline Rate: 115 Monitor Mode: External US FHR Baseline Changes: No Baseline Change Variability: Moderate 6-25 bpm Accelerations: 15X15 Decelerations: None Category: Category I Membrane Status: Intact Datetime: 05/24/2017 08:26 Assessment Type: Ongoing Assessment Maternal Assessment Level of Consciousness: Fully Conscious DTR's/Clonus: DTRs 2+; No Clonus Headache: Denies Blurred Vision: No Respiratory Effort: Unlabored; Regular Rhythm; Equal Expansion Breath Sounds, Left: Clear and Equal Breath Sounds, Right: Clear and Equal Nausea/Vomiting: Denies RUQ Epigastric Pain: Denies Lower Extremities Edema: None Upper Extremities Edema: None Facial Edema: None Fall Risk Assessment History of Falling: (0) No Secondary Diagnosis: (0) No Ambulatory Aid: (0) Bedrest/Nurse Assist Gait: (0) Normal/Bedrest/Immobile Mental Status: (0) Oriented to Own Ability Datetime: 05/24/2017 08:00 Maternal Assessment Level of Consciousness: Fully Conscious Headache: Denies Blurred Vision: No Respiratory Effort: Unlabored Breath Sounds, Left: Clear and Equal Breath Sounds, Right: Clear and Equal Nausea/Vomiting: Denies RUQ Epigastric Pain: Denies Facial Edema: None Labor Evaluation Frequency: 0 Monitor Mode: External Duration (sec)2399: 0 Resting Tone [place]: Relaxed Heart Rate FHR Baseline Rate: 115 Monitor Mode: External US FHR Baseline Changes: No Baseline Change Variability: Moderate 6-25 bpm Accelerations: 15X15 Decelerations: None Category: Category I Pain Assessment Pain Scale: 0 Pain Presence: None/Denies Pain Type: N/A Pain Goal: 3 Membrane Status: Intact Datetime: 05/24/2017 07:57 Stage of : Antepartum Temperature Route: Axillary Pain Assessment Pain Scale: 0 Pain Presence: None/Denies Pain Type: N/A Pain Goal: 8 Datetime: 05/23/2017 21:05 EGA: 35.1 Datetime: 05/23/2017 21:04 Fall Score: 0 Fall Risk Score Definition: No Risk: No action required Datetime: 05/09/2017 19:30 Fall Score: 0 Fall Risk Score Definition: No Risk: No action required Datetime: 05/09/2017 13:04 EGA: 33.1 Datetime: 05/09/2017 13:00 Fall Score: 0 Fall Risk Score Definition: No Risk: No action required Datetime: 04/05/2017 14:00 Fall Score: 0 Fall Risk Score Definition: No Risk: No action required Datetime: 04/05/2017 12:00 EGA: 28.2 Datetime: 03/23/2017 00:15 EGA: 26.2
== END 2017-06-11 02:42 | disposition home or self-care (01) ==
LOC: OBT 00:30 → L-D 00:30 → OBT 02:42
PROVIDERS: ATTEND Obstetrics & Gynecology
DX: O62.9 Abnormality of forces of labor, unspecified (principal); Z3A.37 37 weeks gestation of pregnancy
CPT/HCPCS: 76818; Z7500; G0463

== ENCOUNTER 2017-06-16 23:39 | Inpatient (IN) | payer OTHER ==
[~2017-06-16] VITALS: Ht 149.9 cm; Wt 70.9 kg
[~2017-06-16 23:39] MED LIST changes: -AZIT250T6 PO
[2017-06-17 00:08] VITALS: Ht 149.9 cm; Wt 70.9 kg
[2017-06-17 00:09] VITALS: BP 108/62; PULSE 80; RESP 18
--- NOTE | 2017-06-17 01:52 | RADRPT ---
PROCEDURE: US OB. CLINICAL INDICATION: Labor. TECHNIQUE: Multiple sonographic images of the pelvis were obtained. Transabdominal imaging only w as performed. The images were reviewed on a PACS workstation. COMPARISON: 06/11/2017 FINDINGS: There is a single viable intrauterine gestation. Cardiac activity is present with 132 beats per minute. There is a cephalic presentation. Measurements were made in order to determine age. The results are as follows: BPD = 9.57 cm HC = 33.53 cm AC = 35.57 cm FL = 7.4 cm Estimated gestational age of approximately 38 weeks 5 days. The estimated date of delivery is 06/26/2017. The EFW = 3640 g. EFW percentile: 73% The placenta is fundal, grade 3. There is no evidence for an abruption or placenta previa. IMPRESSION: 1. Single viable intrauterine gestation of approximately 38 weeks 5 days, based on ultrasound measu rements. The estimated date of delivery is 06/26/2017. 2. EFW percentile: 73%. RPTAT: HTAR .Paolo Coronado MD, Date Time Electronically viewed and signed by .Paolo Coronado MD, on 06/17/2017 01:51 .R/
[2017-06-17] MEDS ORDERED: OXYTOCIN 30 UNITS/LR 500 ML IV SCH ×2 (02:30)
[2017-06-17] MEDS ORDERED: METHYLERGONOVINE 0.2 MG INJ IM PRN (02:30)
[2017-06-17] MEDS ORDERED: LACTATED RINGER'S 1,000 ML IV PRN (02:30)
[2017-06-17] MEDS ORDERED: OXYTOCIN 30 UNITS/LR 500 ML IV PRN (02:30)
[2017-06-17] MEDS ORDERED: CARBOPROST 250 MCG INJ IM PRN (02:30)
[2017-06-17] MEDS ORDERED: MISOPROSTOL 200 MCG TAB PR PRN (02:30)
[2017-06-17] MEDS ORDERED: IBUPROFEN 600 MG TAB PO PRN (02:30)
[2017-06-17] MEDS ORDERED: LIDOCAINE 1% (MPF) 30 ML INJ INJ PRN (02:30)
[2017-06-17] MEDS: LACTATED RINGER'S 1,000 ML IV SCH ×4 (02:48→23:29)
[2017-06-17 02:58] LABS: BASOPHILS % 0.4 % (0.0-2.0); EOSINOPHILS # 0.1 10^3/ul (0.0-0.5); EOSINOPHILS % 1.2 % (0.0-7.0); HEMOGLOBIN 11.4 g/dl (12.0-16.0); LYMPHOCYTES # 2.5 10^3/ul (0.8-2.9); LYMPHOCYTES % 24.8 % (15.0-51.0); MEAN CORPUSCULAR HGB CONC 33.5 g/dl (32.0-37.0); MEAN CORPUSCULAR VOLUME 80.6 fl (82.0-101.0); MEAN PLATELET VOLUME 12.2 fl (7.4-10.4); MONOCYTE # 0.7 10^3/ul (0.3-0.9); MONOCYTES % 6.6 % (0.0-11.0); NEUTROPHIL # 6.7 10^3/ul (1.6-7.5); NEUTROPHILS % 65.8 % (39.0-77.0); PLATELET COUNT 173 10^3/UL (140-415); RED BLOOD COUNT 4.22 10^6/ul (4.20-5.40); RED CELL DISTRIBUTION WIDTH 14.8 % (11.5-14.5); WHITE BLOOD COUNT 10.2 10^3/ul (4.8-10.8)
[2017-06-17 03:16] LABS: INR 0.95; PROTIME 12.7 Sec (12.2-14.2)
[2017-06-17 03:17] LABS: PARTIAL THROMBOPLASTIN TIME 23.8 Sec (25.0-35.0)
[2017-06-17] MEDS ORDERED: FENTAnyl 2MCG/ML-ROPIV 0.2% 100 ML ONE (04:27)
[2017-06-17] MEDS ORDERED: FENTAnyl 50 MCG/ML VIAL ONE (04:27)
[2017-06-17] MEDS ORDERED: NALOXONE (0.4 MG/ML) INJ IV PRN (05:00)
[2017-06-17] MEDS: FENTAnyl 2MCG/ML-ROPIV 0.2% 100 ML BAG EPI SCH ×3 (05:06→20:40)
[2017-06-17] MEDS: OXYTOCIN 30 UNITS/LR 500 ML IV SCH (05:06)
--- NOTE | 2017-06-17 05:51 | TRIAGE ---
OB Triage Datetime Report Generated by CPN: 06/17/2017 05:51 Datetime: 06/17/2017 05:35 Stage of : Labor Labor Evaluation Frequency: 7-9.5 Monitor Mode: External Duration (sec)2399: 100-140 Quality: Moderate Pattern: Normal: <= 5 Contractions in 10 Minutes Resting Tone [place]: Relaxed Heart Rate FHR Baseline Rate: 125 FHR Baseline Changes: No Baseline Change Variability: Moderate 6-25 bpm Accelerations: 15X15 Decelerations: None Category: Category I Datetime: 06/17/2017 05:15 Stage of : Labor Temperature Route: Oral Pain Assessment Pain Scale: 0 Pain Presence: None/Denies Pain Type: N/A Datetime: 06/17/2017 05:06 Stage of : Labor Datetime: 06/17/2017 05:05 Stage of : Labor Labor Evaluation Frequency: 2-7 Duration (sec)2399: 60-130 Quality: Moderate Pattern: Normal: <= 5 Contractions in 10 Minutes Resting Tone [place]: Relaxed Contraction Comments: IRRITABILITY NOTED Heart Rate FHR Baseline Rate: 125 Monitor Mode: External US Variability: Moderate 6-25 bpm Accelerations: 15X15 Decelerations: None Category: Category I Datetime: 06/17/2017 04:47 Vaginal Exam Dilatation (cms): 1.0 Effacement (%): 60 Station: -3 Exam By: Julio CAMPBELL Datetime: 06/17/2017 04:42 Pain Assessment Pain Scale: 2 Pain Presence: Intermittent Pain Type: Contraction Pain Location: Abdomen Pain Relief Measures: Epidural Given Pain Assessment Comments: PT REPORTED FEELING OF RELIEF FROM PAIN. Datetime: 06/17/2017 04:36 Pain Assessment Pain Scale: 6 Pain Presence: Constant Pain Type: Contraction Pain Location: Abdomen Pain Relief Measures: Epidural Given Pain Assessment Comments: EPIDURAL BOLUS STARTED BY MD. Datetime: 06/17/2017 04:28 Monitor Mode: External Monitor Mode: External US Datetime: 06/17/2017 04:27 Monitor Mode: External Monitor Mode: External US Datetime: 06/17/2017 04:19 Comments: LOC PT SITTING UPRIGHT. ONGOING EPIDURAL PLACEMENT Datetime: 06/17/2017 04:12 Stage of : Labor Datetime: 06/17/2017 04:09 Stage of : Labor Datetime: 06/17/2017 04:04 Comments: LOC D/T PATIENT SITTING UPRIGHT AWAITING FOR EPIDURAL. Datetime: 06/17/2017 03:59 Labor Evaluation Frequency: 9-10 Monitor Mode: External Duration (sec)2399: 120-160 Quality: Moderate Pattern: Normal: <= 5 Contractions in 10 Minutes Resting Tone [place]: Relaxed Heart Rate FHR Baseline Rate: 125 Monitor Mode: External US Variability: Moderate 6-25 bpm Accelerations: 15X15 Decelerations: None Category: Category I Datetime: 06/17/2017 03:37 Pain Assessment Comments: PT REQUESTING EPIDURAL AT THIS TIME. Datetime: 06/17/2017 02:57 Stage of : Labor Labor Evaluation Frequency: 4-9 Monitor Mode: External Duration (sec)2399: 70-100 Quality: Moderate Pattern: Normal: <= 5 Contractions in 10 Minutes Resting Tone [place]: Relaxed Heart Rate FHR Baseline Rate: 120 Monitor Mode: External US Variability: Moderate 6-25 bpm Accelerations: 15X15 Decelerations: None Category: Category I Datetime: 06/17/2017 02:51 Stage of : Labor Assessment Type: Admission Assessment Vaginal Bleeding: None Maternal Assessment Level of Consciousness: Fully Conscious DTR's/Clonus: DTRs 2+; No Clonus Headache: Denies Blurred Vision: No Respiratory Effort: Unlabored; Regular Rhythm; Equal Expansion Breath Sounds, Left: Clear and Equal Breath Sounds, Right: Clear and Equal Nausea/Vomiting: Denies RUQ Epigastric Pain: Denies Lower Extremities Edema: None Degree: None Upper Extremities Edema: None Degree: None Facial Edema: None Fall Risk Assessment History of Falling: (0) No Secondary Diagnosis: (0) No Ambulatory Aid: (0) Bedrest/Nurse Assist IV Therapy: (20) Yes Gait: (0) Normal/Bedrest/Immobile Mental Status: (0) Oriented to Own Ability Fall Score: 20 Fall Risk Score Definition: No Risk: No action required Pain Assessment Pain Scale: 6 Pain Presence: Intermittent Pain Type: Contraction Pain Location: Abdomen; Back Pain Goal: 8 Datetime: 06/17/2017 02:15 Time of Arrival: 06/17/2017 02:15 EGA: 38.5 Arrived By: Ambulatory Datetime: 06/17/2017 01:58 Pain Assessment Comments: pt states her UC's spaced out Datetime: 06/17/2017 01:45 Labor Evaluation Frequency: IRREG Monitor Mode: External Duration (sec)2399: 60-140 Quality: Moderate Pattern: Normal: <= 5 Contractions in 10 Minutes Resting Tone [place]: Relaxed Heart Rate FHR Baseline Rate: 115 Monitor Mode: External US Variability: Moderate 6-25 bpm Accelerations: 15X15 Decelerations: None Category: Category I Pain Relief Measures: Comfort Measures Datetime: 06/17/2017 01:44 Pain Assessment Pain Scale: 7 Pain Presence: Intermittent Pain Type: Cramping Pain Location: Abdomen Pain Goal: 4 Pain Relief Measures: Comfort Measures Pain Assessment Comments: pt states pain is still the same Datetime: 06/17/2017 00:45 Labor Evaluation Frequency: 2-10 Monitor Mode: External Duration (sec)2399: 60-240 Quality: Moderate Pattern: Normal: <= 5 Contractions in 10 Minutes Resting Tone [place]: Relaxed Heart Rate FHR Baseline Rate: 130 Monitor Mode: External US Variability: Moderate 6-25 bpm Accelerations: 15X15 Decelerations: None Category: Category I Pain Relief Measures: Comfort Measures Datetime: 06/16/2017 23:56 Assessment Type: Triage Maternal Assessment Level of Consciousness: Fully Conscious DTR's/Clonus: DTRs 2+; No Clonus Headache: Denies Blurred Vision: No Respiratory Effort: Unlabored; Regular Rhythm; Equal Expansion Breath Sounds, Left: Clear and Equal Breath Sounds, Right: Clear and Equal Nausea/Vomiting: Denies RUQ Epigastric Pain: Denies Lower Extremities Edema: None Degree: None Upper Extremities Edema: None Degree: None Facial Edema: None Fall Risk Assessment History of Falling: (0) No Secondary Diagnosis: (0) No Ambulatory Aid: (0) Bedrest/Nurse Assist IV Therapy: (0) No Gait: (0) Normal/Bedrest/Immobile Mental Status: (0) Oriented to Own Ability Fall Score: 0 Fall Risk Score Definition: No Risk: No action required Comment: PT PRESENTED TO TRIAGE C/O UC'S Q5-8 MINS. FAMILY AT BEDSIDE. CALL LIGHT W/IN REACH Vaginal Exam Dilatation (cms): 1.0 Effacement (%): 60 Station: -3 Exam By: NEGRA ACOSTA Vaginal Bleeding: None Cervix, Consistency: Moderate Cervix, Position: Posterior Datetime: 06/16/2017 23:47 Stage of : OB Triage Temperature Route: Oral Pain Assessment Pain Scale: 7 Pain Presence: Intermittent Pain Type: Cramping Pain Location: Abdomen Pain Goal: 4 Pain Relief Measures: Comfort Measures Datetime: 06/16/2017 23:36 Time of Arrival: 06/16/2017 23:36 EGA: 38.4 Arrived By: Wheelchair Arrived From: Home Chief Complaint: UC'S SINCE 06/16/17 AT 2030 03/04 PAIN Movement: Present Contractions: Regular Time Contractions Began: 06/16/2017 20:30 Contractions: 5-8 Rupture of Membranes: Denies Vaginal Bleeding: None Vaginal Discharge: Denies Recent Sexual Intercouse: Denies Abdominal Trauma: Not Applicable Patient Complaints: Contractions; Cramping Time Provider Notified: 06/17/2017 00:26 Provider Notified: DR. GOSS Initial Plan: SVE, EFM Datetime: 06/11/2017 00:41 Fall Score: 0 Fall Risk Score Definition: No Risk: No action required Datetime: 06/11/2017 00:39 EGA: 37.6 Datetime: 05/26/2017 08:07 Fall Score: 0 Fall Risk Score Definition: No Risk: No action required Datetime: 05/25/2017 19:49 Fall Score: 20 Fall Risk Score Definition: No Risk: No action required Datetime: 05/24/2017 19:46 Fall Score: 0 Fall Risk Score Definition: No Risk: No action required Datetime: 05/23/2017 21:05 EGA: 35.1 Datetime: 05/23/2017 21:04 Fall Score: 0 Fall Risk Score Definition: No Risk: No action required Datetime: 05/09/2017 19:30 Fall Score: 0 Fall Risk Score Definition: No Risk: No action required Datetime: 05/09/2017 13:04 EGA: 33.1 Datetime: 05/09/2017 13:00 Fall Score: 0 Fall Risk Score Definition: No Risk: No action required Datetime: 04/05/2017 14:00 Fall Score: 0 Fall Risk Score Definition: No Risk: No action required Datetime: 04/05/2017 12:00 EGA: 28.2 Datetime: 03/23/2017 00:15 EGA: 26.2
[2017-06-17] MEDS ORDERED: DIPHENHYDRAMINE 50 MG INJ ONE (07:55)
[2017-06-17] MEDS: DIPHENHYDRAMINE 50 MG INJ IV PRN ×3 (08:21→23:48)
[2017-06-18] MEDS ORDERED: FENTAnyl 2MCG/ML-ROPIV 0.2% 100 ML BAG EPI SCH
[2017-06-18] MEDS ORDERED: HYDROmorphONE 0.5 MG/0.5 ML SYG IV PRN ×2
[2017-06-18] MEDS ORDERED: KETOROLAC 30 MG INJ IV PRN
[2017-06-18] MEDS: ONDANSETRON 4 MG INJ IV PRN ×3 (00:10→14:16)
[2017-06-18] MEDS: LACTATED RINGER'S 1,000 ML IV SCH ×4 (01:48→22:30)
[2017-06-18] MEDS: FENTAnyl 2MCG/ML-ROPIV 0.2% 100 ML BAG EPI SCH ×2 (03:42→10:02)
[2017-06-18] MEDS: OXYTOCIN 30 UNITS/LR 500 ML IV SCH (06:09)
[2017-06-18] MEDS ORDERED: PROPOFOL 200 MG INJ ONE (07:00)
[2017-06-18] MEDS ORDERED: AMPICILLIN 2 GM/NS (PMX) 100 ML IVPB ONE (10:00)
[2017-06-18] MEDS: AMPICILLIN 1 GM/NS (PMX) 50 ML IVPB SCH ×2 (14:23→17:00)
[2017-06-18] MEDS ORDERED: CEFAZOLIN 2 GM/50 ML (PMX) 50 ML IVPB ONE (16:00)
[2017-06-18] MEDS ORDERED: MISOPROSTOL 200 MCG TAB PR PRN ×2 (16:00→20:30)
[2017-06-18] MEDS ORDERED: OXYTOCIN 30 UNITS/LR 500 ML IV PRN ×2 (16:00→20:30)
[2017-06-18] MEDS ORDERED: METHYLERGONOVINE 0.2 MG INJ IM PRN ×2 (16:00→20:30)
[2017-06-18] MEDS ORDERED: CARBOPROST 250 MCG INJ IM PRN ×2 (16:00→20:30)
[2017-06-18] MEDS ORDERED: FENTAnyl 50 MCG/ML VIAL ONE (16:05)
--- NOTE | 2017-06-18 16:10 | HP ---
Date/Time of Note Date/Time of Note DATE: 06/18/17 TIME: 15:59 OB - History Hx of Present Free Text/Dictation 21 y.o primigravida came in [place] labor at 38wd with inact membrane. initial vaginal exam was1/60/-3 GBS neg was admitted fo pitocin augmenation and ARM done at 1900 06/17/17 at that time cervix 1-2/30%/-2 clear mod amout fluid labor progressed slowly rahed 6 cm with small caput LOP after several hs of more labor cervix as changed to 6-7 cm wih more caput formed primary cesection was called for mode of delivery for failed to progress Chief Complaint: uc's Estimated Due Date: Jun 26, 2017 : 1 Para: 0 Spontaneous : 0 Therapeutic : 0 Care: Good Care Ultrasounds: No ultrasounds, Normal mid trimester US Obstetrical Complications: None Medical Complications: None Past Family/Social History * Past Medical, Surgical, Family and Obstetric Histories reviewed from chart. Blood Type: B+ Rubella: not immune RPR/VDRL: Negative GBS Status: Negative HBsAG: Negative OB Admission Exam Vital Signs Vital Signs Vital Signs Date Time Temp Pulse Resp B/P Pulse Ox O2 Delivery O2 Flow Rate FiO2 06/17/17 00:09 97.6 80 18 108/62 Room Air Physical Exam HEENT: WNL Heart: Rhythm Normal Lungs: Clear, Equal Abdomen: WNL Extremities: Normal Reflexes: Normal Cervical Dilatation: 7cm Effacement: 100% Station: -2 Membranes: Ruptured Amniotic Fluid: Clear Heart Rate: 140's Accelerations: Accelerations Present Decelerations: No Decelerations Varibility: Moderate Contractions on Admission: < 5 Minutes Apart Intensity: Moderate Last 72 hours Lab Results CBC & BMP 06/17/17 02:46 OB Assessment/Plan Other Assessment: IUP 38w6d failure to rogress Plan: Section JEAN GOSS MD Jun 18, 2017 16:09
[2017-06-18] MEDS ORDERED: SODIUM BICARBONATE (IV ADD) 50 ML ONE (16:13)
[2017-06-18] MEDS ORDERED: DEXAMETHASONE 4 MG/ML 1 ML INJ ONE (16:13)
[2017-06-18] MEDS ORDERED: LIDOCAINE 2%/EPI 30 ML INJ ONE (16:13)
[2017-06-18] MEDS ORDERED: PHENYLephrine (100 MCG/ML) 5ML SYG ONE ×2 (16:15→16:50)
[2017-06-18] MEDS ORDERED: morphine SULFATE/PF (10 MG/10 ML) INJ ONE (16:34)
[2017-06-18] MEDS ORDERED: morphine 4 MG/ML VIAL IV PRN (17:00)
[2017-06-18] MEDS ORDERED: DIPHENHYDRAMINE 50 MG INJ IV PRN ×3 (17:00→20:30)
[2017-06-18] MEDS ORDERED: morphine 2 MG INJ IV PRN (17:00)
[2017-06-18] MEDS ORDERED: ONDANSETRON 4 MG INJ IV PRN ×2 (17:00→20:30)
[2017-06-18] MEDS ORDERED: NALOXONE (0.4 MG/ML) INJ IV PRN ×2 (17:00)
[2017-06-18] MEDS ORDERED: ZOLPIDEM 5 MG TAB PO PRN ×2 (17:00→20:30)
--- NOTE | 2017-06-18 18:11 | OPR ---
Operative Report Planned Procedure Procedure date Jun 18, 2017 Procedure(s) primary low transverse section Performed by see signature line Assisting provider: ANDRES HOUSE MD Anesthesiologist: QIAN HERNANDEZ Pre-procedure diagnosis IUP 38w6d failure to progress Anesthesia Type: epidural Procedure Description Under satisfactory epidural ] anesthesia, the patient was prepped and draped and placed in a supine position, tilted to the left. Pfannenstiel incision was made, carried through the subcutaneous tissue. Bleeders brought under control with electrocautery. Fascia incised to the length of the incision. Rectus muscles from the fascia, divided midline. Peritoneum exposed, entered through a transverse incision upon entering the peritoneal cavity copious amount of serous fluid escaping from the peritoneal cavity.. Exploration of abdomen revealed gravid uterus. Transverse incision was made in the lower segment of the uterusabove the uterovesical reflection.. Amniotic sac ruptured. [light meconeum stained ] amniotic fluid noted.normal macrosomic male infant ws born from op []. Nasal oropharyngeal suction was performed. The baby was handed to the team for immediate attention. after the delayed cord clamping The placenta was delivered manually intact.after cord blood obtained. Uterine cavity was cleaned with wet sponge and drainage established. Uterus closed in 2 layers using []#1 and 0 ch gut in continuous fashion. Peritoneal cavity irrigated with warm saline. Sponge, needle and instrument count reported to be correct. Abdominal peritoneum closed with []0ch gut continuously. Rectus muscle approximated with [0 ch gut]. Fascia closed with [# 1 vicryl in 2 segment],subcut tissue was irrigated with waterand this layer was approximated with 00plain and skin closed with 000monocryl . Estimated blood loss [700 ]mL. Urine bag contained []400mL of urine sent to [facility] in stable condition Post-Procedure Post-procedure diagnosis delivered male infant macrosomic Findings: Live Baby [male], Apgars [] and [], weight [9lb 4oz ], position op], [vertex] presentationno]cord. Estimated blood loss: other (700) Specimen(s) description placenta culture from maternal and side Grafts/Implants: no Complication(s): no Pt Condition post procedure: stable Disposition: PACU Physician Certification I, the undersigned physician, hereby certify that I have discussed the procedure described in this consent form with this patient (or the patient's legal delivery representative), including: * The risk and benefits of the procedure; * Any adverse reactions that may reasonably be expected to occur; * Any alternative efficacious methods of treatment which may be medically viable ; * The potential problems that may occur during recuperation; * Potential for blood transfusion and associated risks/benefits; and * Any research or economic interest I may have regarding this treatment. I further certify that the patient/legally responsible person was encouraged to ask question and that all questions were answered. JEAN GOSS MD Jun 18, 2017 18:11
[2017-06-18 20:30] VITALS: BP 119/59; PULSE 67; RESP 20
[2017-06-18] MEDS ORDERED: OXYCODONE/ACETAMINOPHEN (5/325) TAB PO PRN (20:30)
[2017-06-18] MEDS: SENNA/DOCUSATE NA (8.6MG/50MG) TAB PO SCH (21:00)
[2017-06-18 21:31] LABS: ABNORMAL IP MESSAGE 1; HEMATOCRIT 31.6 % (37.0-47.0); MEAN CORPUSCULAR HEMOGLOBIN 27.7 pg (29.0-33.0); MEAN CORPUSCULAR HGB CONC 34.8 g/dl (32.0-37.0); MEAN CORPUSCULAR VOLUME 79.6 fl (82.0-101.0); MEAN PLATELET VOLUME 11.8 fl (7.4-10.4); PLATELET COUNT 160 10^3/UL (140-415); RED BLOOD COUNT 3.97 10^6/ul (4.20-5.40); RED CELL DISTRIBUTION WIDTH 15.3 % (11.5-14.5); WHITE BLOOD COUNT 24.9 10^3/ul (4.8-10.8)
[2017-06-18 21:49] LABS: INR 1.06; PARTIAL THROMBOPLASTIN TIME 25.2 Sec (25.0-35.0); PROTIME 13.8 Sec (12.2-14.2); PT RATIO 1.1
[2017-06-18 21:52] LABS: POSITIVE DIFF @See below
[2017-06-18] MEDS: CEFAZOLIN 2 GM/50 ML (PMX) 50 ML IVPB SCH (22:29)
[2017-06-18 23:11] LABS: ANISOCYTOSIS 1+ (0-0); EOSINOPHILS % (M) 1 % (0-7); GIANT THROMBO% (M) 2 % (0-0); METAMYELOCYTES %M 1 % (0-0); MICROCYTOSIS 1+ (0-0); MONOCYTES % (M) 1 % (0-11); PLATELET ESTIMATE NORMAL; POLYCHROMASIA 1+ (0-0)
[2017-06-19 00:30] VITALS: BP 108/54; PULSE 93; RESP 20
[2017-06-19] MEDS: KETOROLAC 30 MG INJ IV PRN ×3 (00:31→13:28)
[2017-06-19 04:00] VITALS: BP 98/51; PULSE 81; RESP 20
[2017-06-19] MEDS: LANOLIN 7 GM TUBE TOP PRN (06:22)
[2017-06-19] MEDS: CEFAZOLIN 2 GM/50 ML (PMX) 50 ML IVPB SCH ×3 (06:24→21:30)
[2017-06-19] MEDS: LACTATED RINGER'S 1,000 ML IV SCH ×3 (06:30→22:30)
[2017-06-19 07:30] VITALS: BP 102/51; PULSE 83; RESP 18
[2017-06-19] MEDS: SENNA/DOCUSATE NA (8.6MG/50MG) TAB PO SCH ×2 (09:06→21:29)
[2017-06-19 11:42] LABS: BASOPHILS % 0.1 % (0.0-2.0); EOSINOPHILS % 0.1 % (0.0-7.0); HEMATOCRIT 23.7 % (37.0-47.0); HEMOGLOBIN 8.1 g/dl (12.0-16.0); LYMPHOCYTES # 1.9 10^3/ul (0.8-2.9); LYMPHOCYTES % 9.2 % (15.0-51.0); MEAN CORPUSCULAR HEMOGLOBIN 27.2 pg (29.0-33.0); MEAN CORPUSCULAR HGB CONC 34.2 g/dl (32.0-37.0); MEAN CORPUSCULAR VOLUME 79.5 fl (82.0-101.0); MEAN PLATELET VOLUME 11.8 fl (7.4-10.4); MONOCYTE # 1.1 10^3/ul (0.3-0.9); MONOCYTES % 5.6 % (0.0-11.0); NEUTROPHIL # 17.1 10^3/ul (1.6-7.5); NEUTROPHILS % 84.3 % (39.0-77.0); PLATELET COUNT 140 10^3/UL (140-415); RED BLOOD COUNT 2.98 10^6/ul (4.20-5.40); RED CELL DISTRIBUTION WIDTH 15.5 % (11.5-14.5); WHITE BLOOD COUNT 20.4 10^3/ul (4.8-10.8)
[2017-06-19 11:44] LABS: POSITIVE DIFF @See below
[2017-06-19 11:45] VITALS: BP 104/51; PULSE 84; RESP 16
[2017-06-19] MEDS: IBUPROFEN 600 MG TAB PO SCH ×2 (12:00→18:00)
[2017-06-19 16:00] VITALS: BP 107/55; PULSE 89; RESP 16
[2017-06-19] MEDS: OXYCODONE/ACETAMINOPHEN (5/325) TAB PO PRN ×2 (16:53→22:20)
[2017-06-19 20:00] VITALS: BP 111/64; PULSE 91; RESP 18
--- NOTE | 2017-06-19 20:19 | PN ---
Date/Time of Note Date/Time of Note DATE: 06/19/17 TIME: 20:17 OB Subjective Subjective Subjective passing little flatus urination ok OB Objective Objective Objective vss afbrile abdomen distended wound dry lochia mod ext pedal dedema ++ calf neg for tenderness OB Assessment/Plan Other Assessment: stable #1 post c/s Other plan: as ordered JEAN GOSS MD Jun 19, 2017 20:19
[2017-06-19] MEDS: FERROUS GLUCONATE (EC) 325 MG TAB PO SCH (21:30)
[2017-06-20] MEDS: OXYCODONE/ACETAMINOPHEN (5/325) TAB PO PRN ×3 (02:09→19:46)
[2017-06-20 04:00] VITALS: BP 109/84; PULSE 97; RESP 20
[2017-06-20] MEDS: CEFAZOLIN 2 GM/50 ML (PMX) 50 ML IVPB SCH ×3 (06:07→21:59)
[2017-06-20] MEDS: IBUPROFEN 600 MG TAB PO SCH ×4 (06:07→17:27)
[2017-06-20] MEDS: LACTATED RINGER'S 1,000 ML IV SCH ×3 (06:30→22:30)
[2017-06-20 07:20] VITALS: BP 103/69; PULSE 97; RESP 18
[2017-06-20] MEDS: FERROUS GLUCONATE (EC) 325 MG TAB PO SCH ×2 (08:10→22:56)
[2017-06-20] MEDS: SENNA/DOCUSATE NA (8.6MG/50MG) TAB PO SCH ×2 (08:10→21:52)
[2017-06-20 10:52] LABS: BASOPHILS % 0.2 % (0.0-2.0); EOSINOPHILS # 0.1 10^3/ul (0.0-0.5); EOSINOPHILS % 0.7 % (0.0-7.0); HEMATOCRIT 23.3 % (37.0-47.0); HEMOGLOBIN 7.9 g/dl (12.0-16.0); LYMPHOCYTES # 2.2 10^3/ul (0.8-2.9); LYMPHOCYTES % 13.4 % (15.0-51.0); MEAN CORPUSCULAR HEMOGLOBIN 26.8 pg (29.0-33.0); MEAN CORPUSCULAR HGB CONC 33.9 g/dl (32.0-37.0); MEAN PLATELET VOLUME 12.1 fl (7.4-10.4); MONOCYTE # 0.8 10^3/ul (0.3-0.9); MONOCYTES % 4.8 % (0.0-11.0); PLATELET COUNT 182 10^3/UL (140-415); RED BLOOD COUNT 2.95 10^6/ul (4.20-5.40); RED CELL DISTRIBUTION WIDTH 15.9 % (11.5-14.5); WHITE BLOOD COUNT 16.2 10^3/ul (4.8-10.8)
[2017-06-20 16:00] VITALS: BP 102/59; RESP 19
[2017-06-20 19:46] VITALS: BP 101/53; PULSE 77; RESP 18
--- NOTE | 2017-06-20 21:38 | PN ---
Date/Time of Note Date/Time of Note DATE: 06/20/17 TIME: 21:35 OB Subjective Subjective Subjective passing flatus urination ok OB Objective Objective Objective vss afebrile abdomen soft wound dry lochia min calf neg for tenderness pedal edema better OB Assessment/Plan Other Assessment: post c/s #2 stable Other plan: as ordered JEAN GOSS MD Jun 20, 2017 21:38
[2017-06-21] MEDS: IBUPROFEN 600 MG TAB PO SCH ×5 (00:06→23:27)
[2017-06-21] MEDS: OXYCODONE/ACETAMINOPHEN (5/325) TAB PO PRN ×2 (01:01→16:46)
[2017-06-21 04:00] VITALS: BP 97/51; PULSE 75; RESP 18
[2017-06-21] MEDS: LACTATED RINGER'S 1,000 ML IV SCH ×3 (05:46→22:30)
[2017-06-21] MEDS: CEFAZOLIN 2 GM/50 ML (PMX) 50 ML IVPB SCH (05:46)
[2017-06-21 07:30] VITALS: BP 107/56; PULSE 79; RESP 19
[2017-06-21] MEDS ORDERED: DIPHTH/TET/ACEL PERTUSS (ADULT) 0.5 ML VIAL IM* ONE (09:00)
[2017-06-21 09:12] LABS: BASOPHILS % 0.3 % (0.0-2.0); EOSINOPHILS # 0.3 10^3/ul (0.0-0.5); EOSINOPHILS % 2.3 % (0.0-7.0); HEMATOCRIT 26.7 % (37.0-47.0); HEMOGLOBIN 8.9 g/dl (12.0-16.0); LYMPHOCYTES # 2.5 10^3/ul (0.8-2.9); LYMPHOCYTES % 22.2 % (15.0-51.0); MEAN CORPUSCULAR HEMOGLOBIN 26.9 pg (29.0-33.0); MEAN CORPUSCULAR HGB CONC 33.3 g/dl (32.0-37.0); MEAN CORPUSCULAR VOLUME 80.7 fl (82.0-101.0); MEAN PLATELET VOLUME 11.2 fl (7.4-10.4); MONOCYTE # 0.4 10^3/ul (0.3-0.9); MONOCYTES % 3.9 % (0.0-11.0); NEUTROPHILS % 70.3 % (39.0-77.0); PLATELET COUNT 239 10^3/UL (140-415); RED BLOOD COUNT 3.31 10^6/ul (4.20-5.40); RED CELL DISTRIBUTION WIDTH 15.8 % (11.5-14.5); WHITE BLOOD COUNT 11.4 10^3/ul (4.8-10.8)
--- NOTE | 2017-06-21 09:13 | PN ---
Date/Time of Note Date/Time of Note DATE: 06/21/17 TIME: 09:09 OB Subjective Subjective Subjective had bowel movement no specific c/o OB Objective Objective Objective vss afebrile abdomen soft lochia min calf neg for tenderness pedal edema still++ pathologic report shows no sg of funisitis or chorioamnionitis culture both side neg OB Assessment/Plan Other Assessment: stable Other plan: discharge home in am JEAN GOSS MD Jun 21, 2017 09:13
[2017-06-21] MEDS: SENNA/DOCUSATE NA (8.6MG/50MG) TAB PO SCH ×2 (10:16→21:13)
[2017-06-21] MEDS: FERROUS GLUCONATE (EC) 325 MG TAB PO SCH ×2 (10:16→21:13)
[2017-06-21 16:08] VITALS: BP 107/65; PULSE 77; RESP 19
[2017-06-21 19:45] VITALS: BP 108/66; PULSE 68; RESP 18
[2017-06-22 04:00] VITALS: BP 119/64; PULSE 83; RESP 17
[2017-06-22] MEDS: IBUPROFEN 600 MG TAB PO SCH (05:40)
[2017-06-22] MEDS: LANOLIN 7 GM TUBE TOP PRN (06:17)
[2017-06-22] MEDS: LACTATED RINGER'S 1,000 ML IV SCH (06:24)
--- NOTE | 2017-06-22 07:47 | PD.PPDC ---
POSTAL WORKER Discharge Instruction Diagnosis Final Diagnosis: s/p primary c/s for FTP Condition Patient Condition: Stable Diet Diet: Resume Regular Diet Activity/Restrictions Activity: December Shower Restrictions: No Exercising No Lifting Minimize Stair-climbing No Sexual Activity Nothing in the Vagina No [place] No Tampons, douche Wound/Drain Care Instructions Wound/Drain Care Instructions: Wash with soap and water Keep clean and dry Follow-up Follow-up with Physician: 2, Week/Weeks Return to clinic for EMPLOYMENT ASSISTANT Instructions: Fever greater than 101 Chills Worsening abdominal pain Excessive Vaginal Bleeding More than 2 pads per hour Unable to tolerate diet OB Instructions: Breast Tenderness Depression Blurried Vision Headache Surgical Instructions: Incisional Drainage Incisional Redness JEAN GOSS MD Jun 22, 2017 07:47
[2017-06-22 08:00] VITALS: BP 114/59; PULSE 72; RESP 18
--- NOTE | 2017-06-22 08:01 | DS ---
Date/Time of Note Date/Time of Note DATE: 06/22/17 TIME: 07:59 Obstetrical Discharge Record Final Diagnosis Final Diagnosis: Term delivered Section Section: Primary Complications Augmentation: Yes Rupture of Membranes: No Condition on Discharge Physical Assessment Last Vitals: vss afebrile Voiding: Yes Bowel Movement: Yes Breast: Soft, non-tender Fundus: Firm Abdomen and Incision: wound healing and dry Calf Tenderness: No Patient Condition: Stable JEAN GOSS MD Jun 22, 2017 08:01
[2017-06-22] MEDS: SENNA/DOCUSATE NA (8.6MG/50MG) TAB PO SCH (08:55)
[2017-06-22] MEDS: FERROUS GLUCONATE (EC) 325 MG TAB PO SCH (08:55)
== END 2017-06-22 12:13 | disposition home or self-care (01) | DRG 766 ==
LOC: OBT 23:39 → L-D 23:39 → OBT 06-17 02:01 → L-D 06-17 02:01 → PP1 06-18 20:33
PROVIDERS: ADMIT Obstetrics & Gynecology; ATTEND Obstetrics & Gynecology
PROC: 10D00Z1 Extraction of Products of Conception, Low, Open Approach (ICD-10-PCS; principal; 2017-06-18)
PROC: 3E0P3VZ Introduction of Hormone into Female Reproductive, Percutaneous Approach (ICD-10-PCS; 2017-06-18)
DX: O62.0 Primary inadequate contractions (principal); Z37.0 Single live birth; Z3A.38 38 weeks gestation of pregnancy
CPT/HCPCS: 62319; 76815; 85025; 85610; 85730; 86592; 86850; 86900; 86901; 87070; 87340; 88307; 90715; 94760; 99464; G0463; J0290; J0690; J1100; J1200; J1885; J2210; J2274; J2370; J2405; J2590; J3010; J7120

== ENCOUNTER 2017-07-09 16:21 | Emergency (ER) | payer OTHER ==
[~2017-07-09] VITALS: Ht 149.9 cm; Wt 59.1 kg
[2017-07-09 16:31] VITALS: Ht 149.9 cm; Wt 59.1 kg
[2017-07-09] MEDS ORDERED: HYDROmorphONE 1 MG/ML SYG IV STA (17:14)
[2017-07-09] MEDS ORDERED: ONDANSETRON 4 MG INJ IV STA (17:14)
[2017-07-09] MEDS ORDERED: SOD CHLORIDE 0.9% 1,000 ML IV STA (17:14)
--- NOTE | 2017-07-09 17:30 | ERD ---
ER Documentation Chief Complaint Chief Complaint EPIGASTRIC PAIN W/RADIATING PAIN TO THE UPPER BACK X 1 DAY HPI 22-year-old female, brought in by rescue, is complaining of the gastric abdominal pain radiating to her back is diffuse and it lasted for 10 minutes. It returned today and for the past 2 hours it has been constant and she was given pain medication as well as something sublingual. She has a history of nonbloody nonbilious emesis prior to calling rescue, she states that vomiting actually alleviated her pain. She has not had any leg pain, leg swelling, hemoptysis. This patient has not had any fevers or chills, cough. ROS All systems reviewed and are negative except as per history of present illness. Medications Home Meds Active Scripts Cephalexin* (Keflex*) 500 Mg Capsule, 500 MG PO TID for 10 Days, CAP Prov:VINAYAK REYNA PA-C 07/09/17 Ondansetron (Ondansetron Odt) 4 Mg Tab.rapdis, 4 MG PO Q6H Y for NAUSEA AND/OR VOMITING, #10 TAB Prov:VINAYAK REYNA PA-C 07/09/17 Ibuprofen* (Motrin*) 600 Mg Tab, 600 MG PO Q6, #30 TAB Prov:VINAYAK REYNA PA-C 07/09/17 Hydrocodone/Acetaminophen ([place] 5-325 Tablet) 1 Each Tablet, 1 TAB PO Q6H Y for PAIN, #7 TAB Prov:VINAYAK REYNA PA-C 07/09/17 Reported Medications Multivit/Min/Fol Ac/Iron/Pren* ( S*) 1 Tab Tab, 1 TAB PO DAILY, TAB 03/23/17 [Albuterol] No Conflict Check 07/11/11 Allergies Allergies: Coded Allergies: No Known Allergies (Unverified Allergy, Unknown, 06/17/17) PMhx/Soc History of Surgery: No Anesthesia Reaction: No Hx Neurological Disorder: No Hx Respiratory Disorders: Yes (ASTHMA) Hx Cardiac Disorders: No Hx Psychiatric Problems: No Hx Miscellaneous Medical Probl: No Hx Alcohol Use: No Hx Substance Use: No Hx Tobacco Use: No Physical Exam Vitals Vital Signs Date Time Temp Pulse Resp B/P Pulse Ox O2 Delivery O2 Flow Rate FiO2 07/09/17 16:31 98.0 91 22 117/56 99 Physical Exam Patient is in mild distress due to pain HEENT: Head is normocephalic, atraumatic. No scleral icterus. Neck: Supple. Nontender. Lungs: Clear to auscultation. Normal air movement. Heart: Regular rate and rhythm. S1 and S2 are normal. No murmurs, gallops, or rubs. Abdomen: Soft, mild epigastric tenderness, nondistended. Bowel sounds are normoactive. There is no CVA tenderness Extremities: No clubbing or cyanosis. Normal pulses. Moving extremities x 4. No weakness. Neurologic: Alert and oriented 3. No focal deficits. Skin: Normal turgor. No rash or lesions. Result Diagram: 07/09/17 1742 07/09/17 1742 Results 24 hrs Laboratory Tests Test 07/09/17 17:42 07/09/17 18:30 White Blood Count 11.610^3/ul Red Blood Count 4.3810^6/ul Hemoglobin 11.4g/dl Hematocrit 34.8% Mean Corpuscular Volume 79.5fl Mean Corpuscular Hemoglobin 26.0pg Mean Corpuscular Hemoglobin Concent 32.8g/dl Red Cell Distribution Width 15.9% Platelet Count 59768^3/UL Mean Platelet Volume 9.4fl Neutrophils % 82.8% Lymphocytes % 12.1% Monocytes % 3.9% Eosinophils % 0.4% Basophils % 0.5% Nucleated Red Blood Cells % 0.0/100WBC Neutrophils # 9.610^3/ul Lymphocytes # 1.410^3/ul Monocytes # 0.510^3/ul Eosinophils # 0.110^3/ul Basophils # 0.110^3/ul Nucleated Red Blood Cells # 0.010^3/ul D-Dimer 1274.30ng/ml D-Dimer Comment Sodium Level 145mmol/L Potassium Level 4.0mmol/L Chloride Level 106mmol/L Carbon Dioxide Level 26mmol/L Anion Gap 17 Blood Urea Nitrogen 13mg/dl Creatinine 0.68mg/dl Glucose Level 96mg/dl Calcium Level 9.5mg/dl Total Bilirubin 0.7mg/dl Direct Bilirubin 0.00mg/dl Indirect Bilirubin 0.7mg/dl Aspartate Amino Transf (AST/SGOT) 100IU/L Alanine Aminotransferase (ALT/SGPT) 39IU/L Alkaline Phosphatase 165IU/L Troponin I < 0.012ng/ml Total Protein 7.6g/dl Albumin 4.7g/dl Globulin 2.90g/dl Albumin/Globulin Ratio 1.62 Lipase 133U/L Serum HCG, Qualitative NEGATIVE Urine Color YELLOW Urine Clarity CLEAR Urine pH 5.0 Urine Specific [place] 1.017 Urine Ketones NEGATIVEmg/dL Urine Nitrite NEGATIVEmg/dL Urine Bilirubin NEGATIVEmg/dL Urine Urobilinogen 1+mg/dL Urine Leukocyte Esterase NEGATIVELeu/ul Urine Microscopic RBC 3/HPF Urine Microscopic WBC 9/HPF Urine Bacteria FEW/HPF Urine Mucus MODERATE/HPF Urine Hemoglobin 2+mg/dL Urine Glucose NEGATIVEmg/dL Urine Total Protein NEGATIVEmg/dl Current Medications Medications (Trade) Dose Ordered Sig/Kayley Route PRN Reason Start Time Stop Time Status Last Admin Dose Admin Sodium Chloride (NS) 1,000 ml @ 1,000 mls/hr Q1H STAT IV 07/09/17 17:14 07/09/17 18:13 DC 07/09/17 17:58 Ondansetron HCl (Zofran Inj) 4 mg ONCE STAT IV 07/09/17 17:14 07/09/17 17:21 DC 07/09/17 17:58 Hydromorphone HCl (Dilaudid) 1 mg ONCE STAT IV 07/09/17 17:14 07/09/17 17:21 DC 07/09/17 17:58 IV Flush 10 ml 10 ml STK-MED ONCE .ROUTE 07/09/17 18:22 07/09/17 18:23 DC Sodium Chloride (NS) 100 ml @ ud STK-MED ONCE .ROUTE 07/09/17 18:22 07/09/17 18:23 DC Iohexol 150 ml 150 ml STK-MED ONCE .ROUTE 07/09/17 18:22 07/09/17 18:23 DC Iohexol (Omnipaque) 100 ml @ ud STK-MED ONCE .ROUTE 07/09/17 18:36 07/09/17 18:37 DC Iohexol (Omnipaque 350mg/ ml) 50 ml STK-MED ONCE .ROUTE 07/09/17 18:36 07/09/17 18:37 DC Iodixanol (Visipaque Locm) 50 ml STK-MED ONCE .ROUTE 07/09/17 18:42 07/09/17 18:43 DC Iodixanol 100 ml 100 ml STK-MED ONCE .ROUTE 07/09/17 18:43 07/09/17 18:44 DC 07/09/17 18:58 Ceftriaxone Sodium (Rocephin) 50 ml @ 100 mls/hr ONCE ONCE IVPB 07/09/17 20:00 07/09/17 20:29 12-lead EKG(interpreted by supervising physician): Dr. Blackwell Rate/Rhythm: Normal Sinus Rhythm, rate of 74 QRS, ST, T-waves: No changes consistent w/ acute ischemia, no intervals, no dysrhythmias, no ectopy Impression: No evidence of ischemia or arrhythmia DIAGNOSTIC IMAGING REPORT Patient: ARATI WISEMAN : 1995 Age: 22 Sex: F MR #: [id number] DOS: 07/09/17 1714 Ordering MD: VINAYAK REYNA PA-C Location: [facility] Room/Bed: PROCEDURE: Chest x-ray CLINICAL INDICATION: Chest and abdominal pain TECHNIQUE: Chest single view COMPARISON: None FINDINGS: The heart is normal in size. The pulmonary vessels are normal in caliber. The lungs are clear. The costophrenic angles are sharp. The visualized bony thorax is unremarkable. IMPRESSION: No acute cardiopulmonary disease. RPTAT: HH .Hayes Brito MD, Date Time Electronically viewed and signed by .Hayes Brito MD, on 07/09/2017 18:12 .W/ DIAGNOSTIC IMAGING REPORT Patient: AARTI WISEMAN : 1995 Age: 22 Sex: F MR #: [id number] DOS: 07/09/17 1822 Ordering MD: VINAYAK REYNA PA-C Location: [facility] Room/Bed: PROCEDURE: CT ANGIOGRAM CHEST CLINICAL INDICATION: 22 years of age female. Epigastric pain radiating to the back. 3 weeks . Chest pain. TECHNIQUE: CT angiogram of the chest was obtained. Coronal and sagittal reformatted images were obtained from the axial source images. Images were reviewed on a high- resolution PACS workstation. 3-D post processing was performed. Maximum intensity projection images were reconstructed on PACS. DICOM images are available. Intravenous Contrast Medium Administered: 100 mL of Visipaque 320 Image acquisition by series (and radiation doses in CTDIvol): 1.8, 14, 8.5 and 6.7 mGy Estimated cumulative dose or total cmgg-jbslsx-gutabzn (DLP) is: 643 mGy-cm. Estimated radiation doses are based on a 32 cm body phantom reference. Cardiac Gating: None. One or more of the following dose reduction techniques were used: - Automated exposure control. - Adjustment of the mA and/or kV according to patient size. - Use of iterative reconstruction technique. COMPARISON: None available. FINDINGS: CARDIOVASCULAR: Heart: Normal in size. No significant coronary artery calcification. No significant valvular calcification. Pericardium: No pericardial effusion. Pulmonary arteries: Not enlarged. No obvious central filling defects on this non -dedicated study to suggest pulmonary embolism. Thoracic aorta: No significant abnormality. There is a four-vessel aortic arch and left vertebral artery has a separate origin from the aorta. There is pulsation artifact through the ascending aorta. Upper abdominal aorta: No significant abnormality. Celiac axis and SMA are widely patent. There is an accessory left hepatic artery arising from the left gastric artery. 2 right and 2 left renal arteries are widely patent. REMAINING CHEST: Medical devices: None. Thyroid: Normal. Lymph nodes: No supraclavicular, axillary, mediastinal, or hilar lymphadenopathy. Other mediastinal structures: Residual thymus in the anterior prevascular mediastinum Lung parenchyma: No significant abnormality. Airways: No significant abnormality. Pleura: No significant abnormality. Chest wall: No significant abnormality. Upper abdomen: Sub centimeter hypodensity right kidney is likely benign and is favored to represent a scar. Otherwise unremarkable. Musculoskeletal: Mild curvature thoracic spine convex right. There is bony fusion of the posterior elements at a level in the mid-thoracic spine. No suspicious bone lesions. IMPRESSION: 1. Normal appearance of the thoracic aorta. Negative for evidence of aortic dissection or acute aortic syndrome. 2. Negative for evidence of acute PE to subsegmental branches of the pulmonary arteries. 3. Please see CT abdomen pelvis reported separately. RPTAT: HCTS Physician Bernie Date Time Electronically viewed and signed by Physician Bernie on 07/09/2017 19: 18 DIAGNOSTIC IMAGING REPORT Patient: AARTI WISEMAN : 1995 Age: 22 Sex: F MR #: [id number] DOS: 07/09/17 1714 Ordering MD: VINAYAK REYNA PA-C Location: [facility] Room/Bed: PROCEDURE: CT abdomen and pelvis with contrast CLINICAL INDICATION: epigastric pain radiating to the back x 1 days TECHNIQUE: Continues axial CT images were obtained from the lower chest through the pubic symphysis. Coronal and sagittal constructions were performed. Examination was performed after administration of 100 mL of Visipaque 320 intravenous contrast. The calculated radiation dose measures 643 mGy centimeters. The CTDI measures 14 mGy. One or more of the following dose reduction techniques were used: Automated exposure control. Adjustment of the mA and/or kV according to patient size. Use of iterative reconstruction technique. DICOM images are available. COMPARISON: None available FINDINGS: Limited images through the lung bases appear unremarkable. Abdomen: The liver appears normal in size and configuration. There is dependent increased density within the gallbladder, likely reflecting gallstones or sludge within the gallbladder. There is no pericholecystic fluid.. There is no intrahepatic or extrahepatic biliary dilatation. The spleen is normal in size. The pancreas and adrenal glands appear unremarkable. There is a small area of hypoenhancement and volume loss in the right lower pole , likely reflecting scarring. There is no visualized hydronephrosis. Visualized bowel loops appear unremarkable. The appendix appears within normal limits. There is no retroperitoneal adenopathy or ascites. Pelvis: The urinary bladder is partially decompressed.. There is small pelvic free fluid. There is a patulous appearance of the uterus, consistent with recent state. There is postoperative changes related to . There is no abnormal pelvic mass or adenopathy. Osseous structures of the abdomen and pelvis appear within normal limits. IMPRESSION: 1. Apparent gallstones or sludge within the gallbladder. 2. Small area of hypoenhancement with volume loss in the right kidney lower pole, likely reflecting scarring. A focal pyelonephritis appears less likely, although not entirely excluded. 3. Small pelvic free fluid. uterus. 4. The appendix is seen and appears within normal limits. RPTAT: HBST .Valerio Lane MD, MD Date Time Electronically viewed and signed by .Valerio Lane MD, on 07/09/2017 19:23 .T/ CC: VINAYAK REYNA PA-C Procedures/[facility] ED course: Patient was seen, and had a large-bore IV placed, she is placed on a cable tool driller labs and urine were obtained. She was given Dilaudid 1 mg and Zofran 4 mg IV. Urine shows 9 white blood cells, the patient was given Rocephin 1 g IV. Medical decision makin-year-old female who is 3 weeks comes in with epigastric abdominal pain going to her chest and back starting yesterday. She has intermittent history of pain with associated nausea vomiting, differential diagnosis includes gastritis, GERD, hemoperitoneum, pneumothorax, pulmonary embolus, dissection, acute coronary syndrome, acute hepatobiliary process, pancreatitis, gastritis, GERD, pneumonia. D-dimer is elevated, therefore CT pulmonary angiogram was ordered. D-dimer as well as CTPA was discussed at length with the patient which she understands risks and benefits of each tests. CT pulmonary angiogram was negative for dissection or pulmonary embolus. CT abdomen pelvis was also obtained, there are no findings related to postoperative leak, including an abscess, perforation or abscess. This patient' s CT abdomen pelvis does show gallbladder sludge versus gallstones, normal ducts. All labs including AST, ALT, lipase and bilirubin are normal, there are no signs of acute choledocholithiasis or cholangitis. The white blood cell count was mildly elevated at 11, most likely due to pain and vomiting. She does not have any history of fever, I doubt acute cholecystitis. She was treated with Rocephin given her history of vomiting, abdominal pain and evidence of 9 white blood cells in the urine analysis. At this time her pain has subsided, she is sitting comfortably and feels comfortable being discharged. I have asked her to follow-up with her primary care doctor by the end of this week to get a referral to see general surgery. Departure Diagnosis: Primary Impression: Biliary colic Additional Impressions: UTI (urinary tract infection) Epigastric pain Condition: Good VINAYAK REYNA PA-C Jul 09, 2017 17:30
[2017-07-09 17:59] LABS: BASOPHIL # 0.1 10^3/ul (0.0-0.1); BASOPHILS % 0.5 % (0.0-2.0); EOSINOPHILS # 0.1 10^3/ul (0.0-0.5); EOSINOPHILS % 0.4 % (0.0-7.0); HEMATOCRIT 34.8 % (37.0-47.0); HEMOGLOBIN 11.4 g/dl (12.0-16.0); LYMPHOCYTES # 1.4 10^3/ul (0.8-2.9); LYMPHOCYTES % 12.1 % (15.0-51.0); MEAN CORPUSCULAR HGB CONC 32.8 g/dl (32.0-37.0); MEAN CORPUSCULAR VOLUME 79.5 fl (82.0-101.0); MEAN PLATELET VOLUME 9.4 fl (7.4-10.4); MONOCYTE # 0.5 10^3/ul (0.3-0.9); MONOCYTES % 3.9 % (0.0-11.0); NEUTROPHIL # 9.6 10^3/ul (1.6-7.5); NEUTROPHILS % 82.8 % (39.0-77.0); PLATELET COUNT 377 10^3/UL (140-415); RED BLOOD COUNT 4.38 10^6/ul (4.20-5.40); RED CELL DISTRIBUTION WIDTH 15.9 % (11.5-14.5); WHITE BLOOD COUNT 11.6 10^3/ul (4.8-10.8)
--- NOTE | 2017-07-09 18:12 | RADRPT ---
PROCEDURE: Chest x-ray CLINICAL INDICATION: Chest and abdominal pain TECHNIQUE: Chest single view COMPARISON: None FINDINGS: The heart is normal in size. The pulmonary vessels are normal in caliber. The lungs are clear. Th e costophrenic angles are sharp. The visualized bony thorax is unremarkable. IMPRESSION: No acute cardiopulmonary disease. RPTAT: HH .Hayes Brito MD, Date Time Electronically viewed and signed by .Hayes Brito MD, on 07/09/2017 18:12 .W/
[2017-07-09 18:17] LABS: ALANINE AMINOTRANSFERASE 39 IU/L (13-69); ALBUMIN 4.7 g/dl (3.3-4.9); ALBUMIN/GLOBULIN RATIO 1.62; ALKALINE PHOSPHATASE 165 IU/L (42-121); ANION GAP 17 (8-16); ASPARTATE AMINO TRANSFERASE 100 IU/L (15-46); BILIRUBIN,INDIRECT 0.7 mg/dl (0-1.1); BILIRUBIN,TOTAL 0.7 mg/dl (0.2-1.3); BLOOD UREA NITROGEN 13 mg/dl (7-20); CALCIUM 9.5 mg/dl (8.4-10.2); CARBON DIOXIDE 26 mmol/L (21-31); CHLORIDE 106 mmol/L (97-110); CREATININE 0.68 mg/dl (0.44-1.00); D-DIMER 1274.3 ng/ml (<460); GLUCOSE 96 mg/dl (70-220); SODIUM 145 mmol/L (135-144); TOTAL PROTEIN 7.6 g/dl (6.1-8.1)
[2017-07-09] MEDS ORDERED: IOHEXOL 300MG/ML 150 ML BTL ONE (18:22)
[2017-07-09] MEDS ORDERED: SOD CHLORIDE 0.9% 100 ML ONE (18:22)
[2017-07-09 18:34] LABS: TROPONIN-I < 0.012 ng/ml (0.00-0.12)
[2017-07-09] MEDS ORDERED: IOHEXOL 350MG/ML 50 ML BTL ONE (18:36)
[2017-07-09] MEDS ORDERED: IOHEXOL 100 ML ONE (18:36)
[2017-07-09] MEDS ORDERED: IODIXANOL LOCM 50 ML BTL ONE (18:42)
[2017-07-09] MEDS ORDERED: IODIXANOL LOCM 100 ML BTL ONE (18:43)
[2017-07-09 19:01] LABS: ADD UMIC YES; UR ASCORBIC ACID NEGATIVE (NEGATIVE); UR BACTERIA FEW /HPF (NONE SEEN); UR BILIRUBIN (Dip) NEGATIVE (NEGATIVE); UR BLOOD (Dip) 2+ mg/dL (NEGATIVE); UR CLARITY CLEAR (CLEAR); UR COLOR YELLOW (YELLOW); UR GLUCOSE (Dip) NEGATIVE (NEGATIVE); UR KETONES (Dip) NEGATIVE (NEGATIVE); UR LEUKOCYTE ESTERASE (Dip) NEGATIVE Leu/ul (NEGATIVE); UR MUCUS MODERATE /HPF (NONE SEEN); UR NITRITE (Dip) NEGATIVE (NEGATIVE); UR RBC 3 /HPF (0-5); UR SPECIFIC GRAVITY (Dip) 1.017 (1.003-1.030); UR TOTAL PROTEIN (Dip) NEGATIVE (NEGATIVE); UR UROBILINOGEN (Dip) 1+ mg/dL (NEGATIVE)
--- NOTE | 2017-07-09 19:18 | RADRPT ---
PROCEDURE: CT ANGIOGRAM CHEST CLINICAL INDICATION: 22 years of age female. Epigastric pain radiating to the back. 3 weeks postpar sudarshan. Chest pain. TECHNIQUE: CT angiogram of the chest was obtained. Coronal and sagittal reformatted images were obtained from t he axial source images. Images were reviewed on a high-resolution PACS workstation. 3-D post process ing was performed. Maximum intensity projection images were reconstructed on PACS. DICOM images are available. Intravenous Contrast Medium Administered: 100 mL of Visipaque 320 Image acquisition by series (and radiation doses in CTDIvol): 1.8, 14, 8.5 and 6.7 mGy Estimated cumulative dose or total edmz-xsygus-yfjcyyw (DLP) is: 643 mGy-cm. Estimated radiation dos es are based on a 32 cm body phantom reference. Cardiac Gating: None. One or more of the following dose reduction techniques were used: - Automated exposure control. - Adjustment of the mA and/or kV according to patient size. - Use of iterative reconstruction technique. COMPARISON: None available. FINDINGS: CARDIOVASCULAR: Heart: Normal in size. No significant coronary artery calcification. No significant valvular calcifi cation. Pericardium: No pericardial effusion. Pulmonary arteries: Not enlarged. No obvious central filling defects on this non-dedicated study to suggest pulmonary embolism. Thoracic aorta: No significant abnormality. There is a four-vessel aortic arch and left vertebral ar demetra has a separate origin from the aorta. There is pulsation artifact through the ascending aorta. Upper abdominal aorta: No significant abnormality. Celiac axis and SMA are widely patent. There is an accessory left hepatic artery arising from the left gastric artery. 2 right and 2 left renal blue skyla are widely patent. REMAINING CHEST: Medical devices: None. Thyroid: Normal. Lymph nodes: No supraclavicular, axillary, mediastinal, or hilar lymphadenopathy. Other mediastinal structures: Residual thymus in the anterior prevascular mediastinum Lung parenchyma: No significant abnormality. Airways: No significant abnormality. Pleura: No significant abnormality. Chest wall: No significant abnormality. Upper abdomen: Sub centimeter hypodensity right kidney is likely benign and is favored to represent a scar. Otherwise unremarkable. Musculoskeletal: Mild curvature thoracic spine convex right. There is bony fusion of the posterior e lements at a level in the mid-thoracic spine. No suspicious bone lesions. IMPRESSION: 1. Normal appearance of the thoracic aorta. Negative for evidence of aortic dissection or acute aort ic syndrome. 2. Negative for evidence of acute PE to subsegmental branches of the pulmonary arteries. 3. Please see CT abdomen pelvis reported separately. RPTAT: HCTS Betito Zapata, Physician Date Time Electronically viewed and signed by Betito Zapata, Physician on 07/09/2017 19:18 CS/
--- NOTE | 2017-07-09 19:23 | RADRPT ---
PROCEDURE: CT abdomen and pelvis with contrast CLINICAL INDICATION: epigastric pain radiating to the back x 1 days TECHNIQUE: Continues axial CT images were obtained from the lower chest through the pubic symphysi s. Coronal and sagittal constructions were performed. Examination was performed after administrati on of 100 mL of Visipaque 320 intravenous contrast. The calculated radiation dose measures 643 mGy centimeters. The CTDI measures 14 mGy. One or more of the following dose reduction techniques were used: Automated exposure control. Adjustment of the mA and/or kV according to patient size. Use of iterative reconstruction technique. DICOM images are available. COMPARISON: None available FINDINGS: Limited images through the lung bases appear unremarkable. Abdomen: The liver appears normal in size and configuration. There is dependent increased density within the gallbladder, likely reflecting gallstones or sludge within the gallbladder. There is no pericholecys tic fluid.. There is no intrahepatic or extrahepatic biliary dilatation. The spleen is normal in si ze. The pancreas and adrenal glands appear unremarkable. There is a small area of hypoenhancement and volume loss in the right lower pole, likely reflecting scarring. There is no visualized hydronephrosis. Visualized bowel loops appear unremarkable. The appendix appears within normal limits. There is no retroperitoneal adenopathy or ascites. Pelvis: The urinary bladder is partially decompressed.. There is small pelvic free fluid. There is a patul ous appearance of the uterus, consistent with recent state. There is postoperative change s related to . There is no abnormal pelvic mass or adenopathy. Osseous structures of the abdomen and pelvis appear within normal limits. IMPRESSION: 1. Apparent gallstones or sludge within the gallbladder. 2. Small area of hypoenhancement with volume loss in the right kidney lower pole, likely reflecting scarring. A focal pyelonephritis appears less likely, although not entirely excluded. 3. Small pelvic free fluid. uterus. 4. The appendix is seen and appears within normal limits. RPTAT: HBST .Valerio Lane MD, Date Time Electronically viewed and signed by .Valerio Lane MD, on 07/09/2017 19:23 .T/
[2017-07-09] MEDS ORDERED: ONDA4TAB14 PO (19:43)
[2017-07-09] MEDS ORDERED: IBUP-1542 PO (19:43)
[2017-07-09] MEDS ORDERED: HYDR-906 PO (19:43)
[2017-07-09] MEDS ORDERED: CEPH-443 PO (19:43)
[2017-07-09] MEDS ORDERED: CEFTRIAXONE 1 GM/50 ML (PMX) 50 ML IVPB ONE (20:00)
[2017-07-09 20:57] VITALS: BP 105/60; PULSE 75; RESP 20; TEMP 98
== END 2017-07-09 20:50 | disposition home or self-care (01) ==
LOC: FTE 16:21
DX: K80.50 Calculus of bile duct without cholangitis or cholecystitis without obstruction (principal); N39.0 Urinary tract infection, site not specified; J45.909 Unspecified asthma, uncomplicated; R10.2 Pelvic and perineal pain
CPT/HCPCS: 36415; 71010; 71275; 74177; 80053; 81001; 83690; 84484; 84703; 85025; 85378; 93005; 96361; 96374; 96375; J0696; J1170; J2405; J7030; Q9967; Z7502; Z7610

== ENCOUNTER 2017-07-28 21:22 | Emergency (ER) | payer OTHER ==
[~2017-07-28] VITALS: Ht 149.9 cm; Wt 69.0 kg
[~2017-07-28 21:22] MED LIST changes: +CEPH-443 PO; +HYDR-906 PO; +IBUP-1542 PO; +ONDA4TAB14 PO
[2017-07-28 21:26] VITALS: Ht 149.9 cm; Wt 69.0 kg
[2017-07-28] MEDS ORDERED: ONDANSETRON 4 MG INJ IV STA (21:42)
[2017-07-28] MEDS ORDERED: KETOROLAC 30 MG INJ IV STA (21:42)
[2017-07-28] MEDS ORDERED: morphine 4 MG/ML VIAL IV STA (21:42)
[2017-07-28] MEDS ORDERED: SOD CHLORIDE 0.9% 1,000 ML IV STA (21:42)
[2017-07-28 22:24] LABS: BASOPHIL # 0.1 10^3/ul (0.0-0.1); BASOPHILS % 0.7 % (0.0-2.0); EOSINOPHILS # 0.1 10^3/ul (0.0-0.5); EOSINOPHILS % 1.2 % (0.0-7.0); HEMATOCRIT 36.6 % (37.0-47.0); HEMOGLOBIN 12.5 g/dl (12.0-16.0); LYMPHOCYTES # 2.5 10^3/ul (0.8-2.9); LYMPHOCYTES % 27.5 % (15.0-51.0); MEAN CORPUSCULAR HEMOGLOBIN 26.3 pg (29.0-33.0); MEAN CORPUSCULAR HGB CONC 34.2 g/dl (32.0-37.0); MEAN CORPUSCULAR VOLUME 77.1 fl (82.0-101.0); MEAN PLATELET VOLUME 10.3 fl (7.4-10.4); MONOCYTE # 0.6 10^3/ul (0.3-0.9); MONOCYTES % 6.9 % (0.0-11.0); NEUTROPHIL # 5.7 10^3/ul (1.6-7.5); NEUTROPHILS % 63.5 % (39.0-77.0); PLATELET COUNT 315 10^3/UL (140-415); RED BLOOD COUNT 4.75 10^6/ul (4.20-5.40); RED CELL DISTRIBUTION WIDTH 14.8 % (11.5-14.5); WHITE BLOOD COUNT 8.9 10^3/ul (4.8-10.8)
--- NOTE | 2017-07-28 22:42 | RADRPT ---
PROCEDURE: ULTRASOUND LIMITED ABDOMEN CLINICAL INDICATION: 22-year-old female with abdominal pain. TECHNIQUE: Multiple sonographic of the right upper quadrant of the abdomen were obtained. The imag es were reviewed on a PACS workstation. COMPARISON: None. FINDINGS: The pancreas is partially visualized and is otherwise without abnormal echogenicity. The liver displays normal echogenicity. The liver measures 17.7 cm in length. No evidence of intrah epatic biliary ductal dilatation is seen. The portal and hepatic veins are unremarkable. The gallbladder contains multiple small mobile shadowing stones. The gallbladder wall thickness is w ithin normal limits measuring 2.3 mm. No pericholecystic fluid is seen. The common bile duct measure s 4.5 mm and is not dilated. The right kidney displays normal echogenicity. The right kidney measures 10.5 cm in maximal length. No caliectasis or hydronephrosis is seen. No free fluid is seen. IMPRESSION: Cholelithiasis. .Tommie Mayberry MD, MD Date Time Electronically viewed and signed by .Tommie Mayberry MD, on 07/28/2017 22:41 .M/
[2017-07-28 22:44] LABS: ALBUMIN 4.6 g/dl (3.3-4.9); ALBUMIN/GLOBULIN RATIO 1.43; BILIRUBIN,INDIRECT 0.3 mg/dl (0-1.1); BILIRUBIN,TOTAL 0.3 mg/dl (0.2-1.3); CREATININE 0.63 mg/dl (0.44-1.00); POTASSIUM 4.5 mmol/L (3.5-5.1); TOTAL PROTEIN 7.8 g/dl (6.1-8.1)
[2017-07-28] MEDS ORDERED: ONDA4TAB14 PO (23:17)
[2017-07-28] MEDS ORDERED: METO10TA92 PO (23:17)
[2017-07-28] MEDS ORDERED: HYDR-902 PO (23:17)
--- NOTE | 2017-07-28 23:21 | ERD ---
ER Documentation Chief Complaint Chief Complaint c/o GS attack. (+) n/v. Seen here 3 wks ago for same. HPI 22-year-old female presents with right upper quadrant abdominal pain with nausea and vomiting. She had diagnosed with gallstones 3 weeks ago and this is a flareup of that pain. No fever. Pain is worse after eating. She has been trying to take Georgiana to control it which usually helps but this time the pain was too much so she came to the emergency room. ROS All systems reviewed and are negative except as per history of present illness. Medications Home Meds Active Scripts Metoclopramide* (Reglan*) 10 Mg Tablet, 10 MG PO Q6 Y for NAUSEA AND/OR VOMITING , #30 TAB Prov:QIAN CHAPMAN PA-C 07/28/17 Ondansetron (Ondansetron Odt) 4 Mg Tab.rapdis, 4 MG PO Q6H Y for NAUSEA AND/OR VOMITING, #30 TAB Prov:QIAN CHAPMAN PA-C 07/28/17 Hydrocodone/Acetaminophen (Georgiana 10-325 Tablet) 1 Each Tablet, 1 TAB PO Q6H Y for PAIN, #20 TAB Prov:QIAN CHAPMAN PA-C 07/28/17 Cephalexin* (Keflex*) 500 Mg Capsule, 500 MG PO TID for 10 Days, CAP Prov:VINAYAK REYNA PA-C 07/09/17 Ondansetron (Ondansetron Odt) 4 Mg Tab.rapdis, 4 MG PO Q6H Y for NAUSEA AND/OR VOMITING, #10 TAB Prov:VINAYAK REYNA PA-C 07/09/17 Ibuprofen* (Motrin*) 600 Mg Tab, 600 MG PO Q6, #30 TAB Prov:VINAYAK REYNA PA-C 07/09/17 Hydrocodone/Acetaminophen ([place] 5-325 Tablet) 1 Each Tablet, 1 TAB PO Q6H Y for PAIN, #7 TAB Prov:VINAYAK REYNA PA-C 07/09/17 Reported Medications Multivit/Min/Fol Ac/Iron/Pren* ( S*) 1 Tab Tab, 1 TAB PO DAILY, TAB 03/23/17 [Albuterol] No Conflict Check 07/11/11 Allergies Allergies: Coded Allergies: No Known Allergies (Unverified Allergy, Unknown, 06/17/17) PMhx/Soc History of Surgery: Yes (tonsillectomy, c/section x1) Anesthesia Reaction: No Hx Neurological Disorder: No Hx Respiratory Disorders: Yes (asthma) Hx Cardiac Disorders: No Hx Psychiatric Problems: No Hx Miscellaneous Medical Probl: Yes (gallstone) Hx Alcohol Use: No Hx Substance Use: No Hx Tobacco Use: No Smoking Status: Never smoker FmHx Family History: No diabetes Physical Exam Vitals Vital Signs Date Time Temp Pulse Resp B/P Pulse Ox O2 Delivery O2 Flow Rate FiO2 07/28/17 21:26 98.4 116 24 131/89 100 Physical Exam INITIAL VITAL SIGNS: Reviewed by me GENERAL: Awake, alert and oriented x 4, well appearing, nontoxic, speaking in full sentences. No acute distress RESPIRATORY: Clear to auscultation bilaterally. Symmetric chest wall rise. No wheezing or rales. No accessory muscle use. CV: Regular rate and rhythm. No murmurs, rubs, or gallops. ABDOMEN: Soft, positive Jauregui sign, negative McBurney's point tenderness, negative CVA tenderness, no rebound or guarding Result Diagram: 07/28/17221407/28/172214 Results 24 hrs Laboratory Tests Test 07/28/17 22:15 White Blood Count 8.910^3/ul Red Blood Count 4.7510^6/ul Hemoglobin 12.5g/dl Hematocrit 36.6% Mean Corpuscular Volume 77.1fl Mean Corpuscular Hemoglobin 26.3pg Mean Corpuscular Hemoglobin Concent 34.2g/dl Red Cell Distribution Width 14.8% Platelet Count 59868^3/UL Mean Platelet Volume 10.3fl Neutrophils % 63.5% Lymphocytes % 27.5% Monocytes % 6.9% Eosinophils % 1.2% Basophils % 0.7% Nucleated Red Blood Cells % 0.0/100WBC Neutrophils # 5.710^3/ul Lymphocytes # 2.510^3/ul Monocytes # 0.610^3/ul Eosinophils # 0.110^3/ul Basophils # 0.110^3/ul Nucleated Red Blood Cells # 0.010^3/ul Sodium Level 141mmol/L Potassium Level 4.5mmol/L Chloride Level 103mmol/L Carbon Dioxide Level 26mmol/L Anion Gap 17 Blood Urea Nitrogen 11mg/dl Creatinine 0.63mg/dl Glucose Level 109mg/dl Calcium Level 10.0mg/dl Total Bilirubin 0.3mg/dl Direct Bilirubin 0.00mg/dl Indirect Bilirubin 0.3mg/dl Aspartate Amino Transf (AST/SGOT) 140IU/L Alanine Aminotransferase (ALT/SGPT) 72IU/L Alkaline Phosphatase 225IU/L Total Protein 7.8g/dl Albumin 4.6g/dl Globulin 3.20g/dl Albumin/Globulin Ratio 1.43 Lipase 168U/L Current Medications Medications (Trade) Dose Ordered Sig/Kayley Route PRN Reason Start Time Stop Time Status Last Admin Dose Admin Sodium Chloride (NS) 1,000 ml @ 1,000 mls/hr Q1H STAT IV 07/28/17 21:42 07/28/17 22:41 DC 07/28/17 22:13 Morphine Sulfate (morphine) 4 mg ONCE STAT IV 07/28/17 21:42 07/28/17 21:43 DC 07/28/17 22:04 Ondansetron HCl (Zofran Inj) 4 mg ONCE STAT IV 07/28/17 21:42 07/28/17 21:43 DC 07/28/17 22:04 Ketorolac Tromethamine (Toradol) 30 mg ONCE STAT IV 07/28/17 21:42 07/28/17 21:43 DC 07/28/17 22:04 Procedures/MDM The differential diagnosis includes but is not limited to appendicitis, cholelithiasis, cholecystitis, pancreatitis, hepatitis, gastritis, peptic ulcer disease, bowel obstruction, diverticulitis, renal disease including stones, torsion, AAA, pyelonephritis, and others. The patient has cholelithiasis without evidence of cholecystitis. She got good relief of her symptoms with morphine and Zofran and she will be discharged home with Georgiana and Regvinicius. As well as copies of her labs and ultrasound reports that she can follow with primary care. Patient counseled regarding my diagnostic impression and care plan. Prior to discharge all questions answered. Pt agrees with treatment plan and understands strict return precautions. Pt is instructed to follow up with primary care provider within 24-48 hours. Precautionary instructions provided including instructions to return to the ER if not improving or for any worsening or changing symptoms or concerns. Departure Diagnosis: Primary Impression: Biliary colic Condition: Stable Patient Instructions: Biliary Colic With Gallstone (Confirmed) Additional Instructions: Call your primary care doctor TOMORROW for an appointment during the next 1-2 days.See the doctor sooner or return here if your condition worsens before your appointment time. QIAN CHAPMAN PA-C Jul 28, 2017 23:21
== END 2017-07-28 23:29 | disposition home or self-care (01) ==
LOC: FTE 21:22
DX: K80.50 Calculus of bile duct without cholangitis or cholecystitis without obstruction (principal); J45.909 Unspecified asthma, uncomplicated; R11.2 Nausea with vomiting, unspecified
CPT/HCPCS: 76705; 80053; 83690; 85025; J1885; J2270; J2405; J7030; 36415; 96374; 96375